=== PATIENT | male | born 1950 | race Caucasian/White ===

== ENCOUNTER → 2018-12-21 15:39 | Outpatient (CLI) | payer MEDICARE, SELFPAY ==
[2018-12-21 17:41] LABS: Protein, Urine (Random) 17.7 mg/dL (<11.9); Protein:Creat Ratio 261 mg/g CRE (0-200)
== END ==
PROVIDERS: Family Provider Family Medicine; PCP Family Medicine; Visit Provider Internal Medicine Nephrology
DX: N18.3 Chronic kidney disease, stage 3 (moderate) (principal)
CPT/HCPCS: 82570; 84156

== ENCOUNTER → 2018-12-23 11:02 | Outpatient (CLI) | payer MEDICARE, SELFPAY ==
[2017-01-07 17:49] VITALS: BMI 30.9
--- NOTE | 2018-12-23 11:12 | US_ITS ---
STUDY: RENAL ULTRASOUND - COMPLETE REASON FOR EXAM: Male, 68 years old. Elevated BUN/creatinine TECHNIQUE: Ultrasound evaluation of the kidneys was performed with real-time and static hargrove-scale imaging. COMPARISON: None. FINDINGS: RIGHT KIDNEY: Normal location of the right kidney, which is normal in size. The right kidney measures 9.5 x 4.7 x 5.0 cm. There is a normal cortex of the right kidney. The renal cortex measures 1.2 cm. There is no right renal mass or cyst. There are no right renal calculi. There is no right hydronephrosis. DISTAL RIGHT URETER: There is non-visualization of the distal right ureter. There is no demonstrated right ureterovesical junction calculus. There is a visualized right ureteral jet. LEFT KIDNEY: Normal location of the left kidney, which is normal in size. The left kidney measures 9.3 x 4.8 x 4.9 cm. There is a normal cortex of the left kidney. The renal cortex measures 1.4 cm. There is no left renal mass or cyst. There are no left renal calculi. There is no left hydronephrosis. DISTAL LEFT URETER: There is non-visualization of the distal left ureter. There is no demonstrated left ureterovesical junction calculus. There is a visualized left ureteral jet. AORTA: There is no elongation or tortuosity of the abdominal aorta. I.V.C.: The IVC is patent. BLADDER: The bladder is sonographically normal, however there is impingement upon the inferior bladder from a likely prostate nodule measuring 1.2 x 1.1 x 1.2 cm. Consider further evaluation with CT, or dedicated prostate ultrasound US/Kidney and Bladder IMPRESSION: No obstructive uropathy or suspicious solid lesion. Possible prostate lesion Electronically Signed: Charlie Guallpa MD at 12:55 EDT , Service support ,
== END ==
PROVIDERS: Family Provider Family Medicine; PCP Family Medicine; Referring Provider Internal Medicine Nephrology; Visit Provider Internal Medicine Nephrology
DX: N18.3 Chronic kidney disease, stage 3 (moderate) (principal)
CPT/HCPCS: 76770

== ENCOUNTER → 2019-01-23 11:34 | Outpatient (CLI) | payer MEDICARE, SELFPAY ==
[2019-01-23 13:16] LABS: Albumin, Serum 3.9 g/dL (3.2-5.0); BUN 25 mg/dL (7-18); BUN/Creat Ratio 16.3 RATIO (10-20); Calcium,Total 9.1 mg/dL (8.5-10.1); Chloride 105 mmol/L (98-107); Creatinine, Serum 1.53 mg/dL (0.70-1.30); EST Glomerular Filtration Rate 49 mL/min (>60); Est Glom Filt Rate - Afr Amer 59 mL/min (>60); Glucose 120 mg/dL (74-106); Phosphorus 2.9 mg/dL (2.5-4.9); Sodium Level 137 mmol/L (136-145)
[2019-01-24 15:27] LABS: Anti-Nuclear Antibody Test Negative (.)
== END ==
PROVIDERS: Family Provider Family Medicine; PCP Family Medicine; Visit Provider Internal Medicine Nephrology
DX: N18.3 Chronic kidney disease, stage 3 (moderate) (principal)
CPT/HCPCS: 36415; 80069; 86038

== ENCOUNTER → 2019-09-04 11:04 | Outpatient (CLI) | payer MEDICARE, SELFPAY ==
[2017-01-07 17:49] VITALS: BMI 30.9
[2019-09-04 12:48] LABS: Albumin, Serum 3.8 g/dL (3.2-5.0); BUN 21 mg/dL (7-18); BUN/Creat Ratio 13.8 RATIO (10-20); Calcium,Total 9.3 mg/dL (8.5-10.1); Chloride 107 mmol/L (98-107); Creatinine, Serum 1.52 mg/dL (0.70-1.30); EST Glomerular Filtration Rate 49 mL/min (>60); Est Glom Filt Rate - Afr Amer 59 mL/min (>60); Glucose 79 mg/dL (74-106); Phosphorus 2.6 mg/dL (2.5-4.9); Potassium 4.1 mmol/L (3.5-5.1); Sodium Level 141 mmol/L (136-145)
--- OUTSIDE RECORDS SUMMARY | 2020-01-14 09:34 | XMS RPT_ITS | CCD ---
:1950 External Reference #:[id number] Author Organization [facility] Care Team Providers Name Role Phone Vanessa Livingston () Primary Care Provider Allergies Reported Allergen Reaction(s) Severity Date of Onset Location atorvastatin 11-22-2004 - [facility] ([id number]) diphenhydrAMINE 06-01-2006 - [facility] ([id number]) Pravastatin Myalgia 11-15-2017 - [facility] ([id number]) Simvastatin 11-22-2004 - [facility] ([id number]) Medications Medication Name Sig Date Prescriber Location Finasteride finasteride (PROSCAR) 09-19-2019 Zoraida Bond) [facility] 5 mg tablet ([id number]) Indications: BPH without obstruction/lower urinary tract symptoms Take 1 tablet by mouth once daily. 90 tablet 3 09/19/2019 Active Comment: Take 1 tablet by mouth once daily. Meclizine meclizine (ANTIVERT) 05-05-2019 - Lisa ([facility]) [facility] 25 mg tab Take 1 11-20-2019 Podlogar Lisa ([id number]) tablet by mouth every (Retail Client Manager) Podlogar 6 hours as needed (dizziness). 30 tablet 0 05/05/2019 11/20/2019 Discontinued Comment: Take 1 tablet by mouth every 6 hours as needed (dizziness). POLYETHYLENE peg 3350-electrolytes 12-05-2019 - Lisa (Retail Client Manager) Michelle and GLYCOL 3350 / (COLYTE) [id number] 12-05-2019 [facility] Lisa [facility] ([id number]) Potassium Chloride -5.84 gram solution (Retail Client Manager) [facility]logar / Sodium Take 4,000 mL by mouth Bicarbonate / one time only for 1 Sodium Chloride / dose. 1 Bottle 0 sodium sulfate 12/05/2019 12/05/2019 Active Comment: Take 4,000 mL by mouth one t nacho only for 1 dose. rosuvastatin rosuvastatin (CRESTOR) 5 mg 09-18-2019 René Valdez) [facility] tablet Indications: Pure [place] (44 195) hypercholesterolemia Take 1 tablet by mouth daily at bedtime. 30 tablet 5 09/18/2019 Active Comment: Take 1 tablet by mouth daily at bedtime. tamsulosin tamsulosin ER (FLOMAX) 0.4 09-19-2019 [place] ([place]) C [facility] mg Indications: BPH without [place] (90984) obstruction/lower urinary tract symptoms Take 1 capsule by mouth twice daily at 6AM and 9PM. 180 capsule 3 09/19/2019 Active Comment: Take 1 capsule by mouth twic e daily at 6AM and 9PM. Vacuum Erection Vacuum Erection Device 01-16-2016 [facility] System (RAPPORT VACUUM (441 95) (RAPPORT VACUUM THERAPY) kit THERAPY) kit Indications: Impotence of organic origin To use as directed. Dx:N52.9 1 Kit 0 01/16/2016 Active Vacuum Erection Device System 01-16-2016 [facility] (19556) (RAPPORT VACUUM THERAPY) kit Indications: Impotence of organic origin To use as directed. Dx:N52.9 1 Kit 0 01/16/2016 Active Vacuum Erection Device System 01-16-2016 [facility] (44214) (RAPPORT VACUUM THERAPY) kit Indications: Impotence of organic origin To use as directed. Dx:N52.9 1 Kit 0 01/16/2016 Active Vacuum Erection Device System 01-16-2016 [facility] (80252) (RAPPORT VACUUM THERAPY) kit Indications: Impotence of organic origin To use as directed. Dx:N52.9 1 Kit 0 01/16/2016 Active Comment: To use as directed. Dx:N52.9 Problems Active Problems Category Problem Name Status Date Location Chronic kidney disease Chronic kidney disease stage Active [facility] 3 (21881) Disorders of lipid Pure hypercholesterolemia Active [facility] metabolism (14832) Esophageal disorders Gastroesophageal reflux Active [facility] disease (30769) Essential hypertension Essential hypertension Active 02-12-20 15 - [facility] (79382) Hyperplasia of Benign prostatic hyperplasia Active 01-15-2016 - [facility] prostate (73451) Other inflammatory Psoriasis Active 02-21-2007 - [facility] condition of skin (06300) 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 Active 016 - [facility] disorders (68068) Spondylosis; Displacement of lumbar Active 09-16-2005 - [facility] intervertebral disc intervertebral disc without (14660) disorders; other back myelopathy problems Past or Other Problems Category Problem Name Status Date Location Genitourinary symptoms Lower urinary tract Completed 07-19-2014 - [facility] and ill-defined symptoms (52863) conditions Other screening for Raised prostate Completed 02-04-2016 - [facility] suspected conditions specific antigen (44 195) (not mental disorders or infectious disease) Other upper respiratory Sore throat symptom Completed 09-11-2013 - [facility] infections (10235) Results Result Name Value Range Unit Interpretation Flag Date Location [facility] on 2019-12-12 CNPN Telephone (ISI) Normal 12-12-2019 [facility] WILD CARABALLO ([id number]) 1950 M [place] Date Time Provider Department ([id number]) 12/12/19 REDD COLON During your visit today, we recorded the following informati on about you: Redd Colon MD 12/12/2019 5:33 PM Signed Colon polyp was a tubular adenoma Rio Cardenas, RN, RN 12/13/2019 7:56 AM Signed Attempted to call pt; left VM asking pt to call office back regarding results. Repeat colonoscopy in 5 years. Allergies As of Date: 12/12/2019 Noted Allergy Reaction BENADRYL (DIPHENHYDRAMINE HCL) 06/01/2006 Comments: hyper feeling LIPITOR (ATORVASTATIN CALCIUM) 11/22/2004 PRAVASTATIN 11/15/2017 17 - Myalgia ZOCOR (SIMVASTATIN) 11/22/2004 Date Reviewed: 12/11/2019 Reviewed by: Raya Torrez (Rn) AKOSUA Fregoso - Fully Assess ed Reason for Visit: Results [95] Prescriptions as of 12/12/2019 Sig: TAMSULOSIN 0.4 MG CAPSULE Take 1 capsule by mouth twice* FINASTERIDE 5 MG TABLET Take 1 tablet by mouth once d* ROSUVASTATIN 5 MG TABLET Take 1 tablet by mouth daily * VACUUM ERECTION DEVICE SYSTEM* To use as directed. Dx:N52.9 Problem List As Of Date 12/12/2019 Noted Resolved LUMBAGO [M54.5] 09/16/2005 PURE HYPERCHOLESTEROLEM [E78.00] More... LUMBAR DISC DISPLACEMENT [M51.26] OTHER PSORIASIS [L40.8] 02/21/2007 ESOPHAGEAL REFLUX [K21.9] More... Sore throat [J02.9] 09/11/2013 More... Lower urinary tract symptoms (LUTS) [R39.9] 07/19/2014 Essential hypertension [I10] 02/11/2015 BPH (benign prostatic hypertrophy) with urinary*01/15/2016 Impotence of organic origin [N52.9] 01/15/2016 Elevated prostate specific antigen (PSA) [R97.2*02/04/2016 BPH (benign prostatic hyperplasia) [N40.0] Psoriasis [L40.9] More... Encounter Status:Closed by RIO CARDENAS on 12/13/19 surgical pathology on 2019-12-11 SURGICAL Specimen originated from [facility] Normal 12-11-2019 [facility] Specimen #: [id number] Clinic Submitting Physician: REDD COLON MD [place] ([id number]) FINAL DIAGNOSIS Descending colon polyp, biopsy - Tubular adenoma. IG/lbk 12/12/2019 Yani Teresa M.D., Ph.D. (Electronic Signature) SPECIMEN SUBMITTED A: DESCENDING COLON POLYP CLINICAL DATA Z86.010 FORCEP GROSS DESCRIPTION A. Received in formalin is one piece of azrola, soft tissue brody suring 0.2 x 0.2 x 0.2 cm. Totally submitted in one cassette. Gross examination performed at [facility], [address] [place] [address] MMD 12/12/2019 4:44:18 AM Date of Report: 12/12/2019 Date of Procedure: 12/11/2019 Date of Receipt: 12/11/2019 Submitted by: REDD COLON MD Location: W010 Diagnostic interpretation performed at [place] [address]. CLIA Number: [id number] pt ed on 2019-12-11 PT ED HNO ID: [id number] Normal 12-11-2019 [facility] Author: Raya PerezRn) KAOSUA Fregoso [place] ([id number]) Service: Nursing Author Type: Registered Nurse Type: Patient Education Filed: 12/11/2019 12:33 PM Note Text: POST OP LEARNING RESPONSE INSTRUCTION PROVIDED TO: Patient METHOD OF INSTRUCTION: Written instruction - handouts Verbal instruction PATIENT / FAMILY RESPONSE: Verbalizes understanding of: INFE CTION MANAGEMENT-Signs and symptoms of an infection and importance of contacting the physician PHYSICAL RESTRICTIONS-Physical restrictions and recommendati ons after discharge from the hospital POST-PROCEDURE INSTRUCTIONS-Correct actions to take to reduc e post procedure complications PATIENT SAFETY PRINCIPLES WORSENING CONDITION-Signs and symptoms of a worsening condit ion that warrant a call to the physician FOLLOW-UP PLAN: Patient instructed to call with any further issues Follow up phone call. SUPPLEMENTAL MATERIAL: Post sedation instructions given Procedure discharge instructions REFERRAL (RECOMMENDATION): None Electronically Signed By: Raya Fregoso RN In Dep artment: AMBULATORY SURGERY PT ED HNO ID: [id number] Normal 12-11-2019 [facility] Author: Raya Fregoso RN [place] ([id number]) Service: Nursing Author Type: Registered Nurse Type: Patient Education Filed: 12/11/2019 11:01 AM Note Text: PRE OP LEARNING ASSESSMENT PROCEDURE/SURGERY: GI PROCEDURES: Colonoscopy READINESS TO LEARN COGNITIVE ABILITY: Alert and oriented MOTIVATION TO LEARN: Eager FAMILY SUPPORT: High - Very involved in pt care PATIENT LEARNS BEST BY: Verbal Instruction FACTORS AFFECTING LEARNING: None PHYSICAL LIMITATIONS AFFECTING LEARNING: None Electronically Signed By: Raya Fregoso RN In Dep artment: AMBULATORY SURGERY nursing prog on NURSING PROG HNO ID: [id number] [place] 12-11-19 [facility] Author: Raya PerezRnKellee Fregoso RN [place] ([id number]) Service: Nursing Author Type: Registered Nurse Type: Nursing Progress Note Filed: 12/11/2019 12:51 PM Note Text: Patient did not experience a fall prior to discharge. Patient did not experience a burn prior to discharge. Raya Fregoso RN NURSING PROG HNO ID: [id number] [place] 12-11-19 [facility] Author: Cleve Bermudez RN [place] ([id number]) Service: ? Author Type: Registered Nurse Type: Nursing Progress Note Filed: 12/11/2019 12:00 PM Note Text: Patient did not experience a fall within the Intraoperative area. Patient did not experience a burn within the Intraoperative area. Cleve Bermudez RN NURSING PROG HNO ID: [id number] [place] 12-11-19 [facility] Author: Hermilo Brandon RN [place] ([id number]) Service: Nursing Author Type: Registered Nurse Type: Nursing Progress Note Filed: 12/11/2019 11:36 AM Note Text: [facility] PRE-OP NURSING HAND OFF NOTE SBAR Hand off given to Tiff Hemphill RN. Hand off was communicated verbally and at the patient's beds hunter and all questions were answered. FALLS/CONLEY Patient did not experience a fall within the Preoperative ar ea. Patient did not experience a burn within the Preoperative ar ea. Hermilo Brandon RN history physical on 2019-12-11 HISTORY PHYSICAL HNO ID: [id number] Normal 11-27 [facility] Author: Redd Colon [place] ([id number]) Service: Gastroenterology Author Type: Physician Type: HANDP Filed: 12/11/2019 11:37 AM Note Text: PROCEDURAL SEDATION HISTORY AND PHYSICAL EXAM SERVICE DATE: 12/11/2019 SERVICE TIME: 11:36 AM Subjective HPI: This is a 69 year old male who presents with a personal history of colon polyps PAST ANESTHESIA HISTORY: No history of adverse event PAST MEDICAL HISTORY Diagnosis Date - BPH (benign prostatic hyperplasia) - Chronic lower back pain Dr. Machuca - CKD (chronic kidney disease) stage 3, GFR 30-59 ml/min (HC C) Dr. 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 Stephens - Pure hypercholesterolemia with low HDL - Snoring - Tubular adenoma of colon 2014 Follow up colonoscopy 2019 PAST SURGICAL HISTORY Procedure Laterality Date - COLONOSCOP W/ OR W/O [facility] SPEC 08/27/14 Colonoscopy Prior to Admission medications as of 12/11/19 1053 Medication Sig Last Dose Taking tamsulosin ER (FLOMAX) 0.4 mg Take 1 capsule by mouth twice daily at 6AM and 9PM. 12/11/2019 at 0600 Yes finasteride (PROSCAR) 5 mg tablet Take 1 tablet by mouth onc e daily. 12/11/2019 at 0600 Yes rosuvastatin (CRESTOR) 5 mg tablet Take 1 tablet by mouth da jefferson at bedtime. 12/10/2019 at 2200 Yes Vacuum Erection Device System (RAPPORT VACUUM THERAPY) kit T o use as directed. Dx:N52.9 Yes ALLERGIES Allergen Reactions - Benadryl [Diphenhyd* hyper feeling - Lipitor [Atorvastat* - Pravastatin Myalgia - Zocor [Simvastatin] Objective PHYSICAL EXAM: The remainder of the physical exam is noncont ributory. AIRWAY: Airway Visualization of Uvula: Yes Mouth opening greater than 2 fingerbreadths: Yes Neck Full Range of Motion: Yes LUNGS: Lungs clear to auscultation, Good diaphragmatic excur susie CARDIAC: Normal S1 and S2; no rubs, murmurs, or gallops Assessment/Plan ASA Class: ASA Class:: Patient with mild systemic disease Active Problems: * No active hospital problems. * Resolved Problems: * No resolved hospital problems. * Provisional Diagnosis/Treatment Plan: Personal history of co madelaine polyps/colonoscopy SEDATION GOAL: Moderate SIGNATURE: Redd Colon MD PATIENT NAME: Wild Caraballo DATE: December 11, 2019 TIME: 11:36 AM PAGER: No panel information on 2019-12-11 Cardiovascular Rn [facility] 12-11-2019 [facility] Gastrointestinal Endoscopy ([id number]) Patient Name: Wild Caraballo Procedure Date: 12/11/2019 11:02 AM Date of : 1950 Admit Type: Ambulatory Age: 69 Gender: Male Note Status: Finalized Sedation Initiated: 1143 AM Procedure: Colonoscopy Indications: Personal history of colonic polyps Providers: Redd Colon MD Patient Profile: This is a 69 year old male. Refer to n ote in patient chart for documentation of history and physical. Last Colonoscopy: 5 years ago. Referring Physician: René Livingston MD Medicines: Fentanyl 100 micrograms IV, Midazolam 5 mg IV Complications: No immediate complications. Estimated blood loss: Minimal. Requesting Provider: Procedure: Pre-Anesthesia Assessment: - Prior to the procedure, a History and Physical was performed, and patient medications and allergies were reviewed. The patient is competent . The risks and benefits of the procedure and the s edation options and risks were discussed with t he patient. All questions were answered and informe d consent was obtained. Patient identification and pr oposed procedure were verified by the physicia n in the procedure room. Mental Status Examinati on: alert and oriented. Airway Examination: normal or opharyngeal airway and neck mobility. Respiratory E xamination: clear to auscultation. CV Examination: normal. Prophylactic Antibiotics: The patient d oes not require prophylactic antibiotics. Prior Anticoagulants: The patient has taken n o previous anticoagulant or antiplatelet agents. A SA Grade Assessment: II - A patient with mild sy stemic disease. After reviewing the risks and benefits, the patient was deemed in satisfactory cond ition to undergo the procedure. The anesthesia p brian was to use moderate sedation / analgesia (cons cious sedation). Immediately prior to adminis tration of medications, the patient was re-assesse d for adequacy to receive sedatives. The hear t rate, respiratory rate, oxygen saturations, b lood pressure, adequacy of pulmonary ventila tion, and response to care were monitored through out the procedure. The physical status of the p atient was re-assessed after the procedure. After I obtained informed consent, the scope was passed under direct vision. Throughout the procedure, the patient's blood pressure , pulse, and oxygen saturations were monitored campbell nuously. The Colonoscope was introduced through the anus and advanced to the cecum, identified by e appendiceal orifice, IC valve and transillumination . The colonoscopy was performed without diffi culty. The patient tolerated the procedure well. T he quality of the bowel preparation was adequate. The ileocecal valve, appendiceal orifice, and rectum were photographed. Findings: A 5 mm polyp was found in the descending colon. The poly p was sessile. The polyp was removed with a jumbo cold forceps . Resection and retrieval were complete. Estimated blood loss was mi nimal. Impression: - One 5 mm polyp in the descending col on, removed with a jumbo cold forceps. Resected and retrieved. Recommendation: - Discharge patient to home. - Written discharge instructions were p rovided to the patient. - Resume previous diet. - Await pathology results. - Repeat colonoscopy in 5 years for edgard veillance. - Patient has a contact number [facility] for emergencies. The signs and symptoms of potential delayed complications were discussed wi the patient. Return to normal activities to [place]. Written discharge instructions were pro vided to the patient. - Continue present medications. Attending Participation: I personally performed the entire procedure. I was prese nt and participated during the entire procedure, including non- lorenz portions, and during the administration and monitoring of Moderate Sedation. Scope In: 11:49:22 AM Scope Out: 12:00:07 PM MD Redd Ortega MD 12/11/2019 12:17:13 PM This report has been signed electronically by Redd winters MD Number of Addenda: 0 Note Initiated On: 12/11/2019 11:02 AM Estimated Blood Loss: Estimated blood loss was minimal. cnpn on 2019-12-05 CNPN Telephone (ASWSTR) Normal 12-05-2019 [place] WILD Zhang ([id number]) 1950 [facility] Date Time Provider Department ([id number]) 12/05/19 RENÉ LIVINGSTON) ASWSTR During your visit today, we recorded the following informati on about you: Raya Fregoso RN, RN 12/05/2019 10:17 AM Signed Please order prep for colonoscopy to [facility] in [facility]. Thank you, AKOSUA Mcgregor [employer], ASSEMBLER [employer]ING [employer]ATS.LEAD SOFTWARE ENGINEER 12/05/2019 11:18 AM Signed Order for colon prep placed. Thanks, Lisa Berrylogar, ASSEMBLER [employer]ING [employer]ATS.LEAD SOFTWARE ENGINEER Allergies As of Date: 12/05/2019 Noted Allergy Reaction BENADRYL (DIPHENHYDRAMINE HCL) 06/01/2006 Comments: hyper feeling LIPITOR (ATORVASTATIN CALCIUM) 11/22/2004 PRAVASTATIN 11/15/2017 17 - Myalgia ZOCOR (SIMVASTATIN) 11/22/2004 Date Reviewed: 12/05/2019 Reviewed by: Raya Torrez (Rn) AKOSUA Fregoso - Fully Assess ed Reason for Visit: Prescription Refills [177] Order(s):Order #: [id number] Prescriptions as of 12/05/2019 Sig: PEG 3350 240 GRAM-ELECTROLYTE* Take 4,000 mL by mouth one ti * TAMSULOSIN 0.4 MG CAPSULE Take 1 capsule by mouth twice* FINASTERIDE 5 MG TABLET Take 1 tablet by mouth once d* ROSUVASTATIN 5 MG TABLET Take 1 tablet by mouth daily * VACUUM ERECTION DEVICE SYSTEM* To use as directed. Dx:N52.9 Problem List As Of Date 12/05/2019 Noted Resolved LUMBAGO [M54.5] 09/16/2005 PURE HYPERCHOLESTEROLEM [E78.00] More... LUMBAR DISC DISPLACEMENT [M51.26] OTHER PSORIASIS [L40.8] 02/21/2007 ESOPHAGEAL REFLUX [K21.9] More... Sore throat [J02.9] 09/11/2013 More... Lower urinary tract symptoms (LUTS) [R39.9] 07/19/2014 Essential hypertension [I10] 02/11/2015 BPH (benign prostatic hypertrophy) with urinary*01/15/2016 Impotence of organic origin [N52.9] 01/15/2016 Elevated prostate specific antigen (PSA) [R97.2*02/04/2016 BPH (benign prostatic hyperplasia) [N40.0] Psoriasis [L40.9] More... Prescriptions ordered this encounter Disp Refills Start End PEG 3350 240 GRAM-ELECTROLYTES 22.72* 1 Toño* 0 12/05/201910/2019 Route: ORAL Sig: Take 4,000 mL by mouth one time only for 1 dose. Encounter Status:Closed by PAULYLOGLISA JAVIER CNP on 12/05/19 progress on 2019-10 PROGRESS HNO ID: [id number] Normal 11-20-2019 [facility] Author: René Mendez () [place] ([id number]) Service: ? Author Type: Physician Type: Progress Notes Filed: 11/20/2019 7:34 PM Note Text: Chief Complaint Patient presents with: 6 Month Exam HPI Wild Caraballo is a 69 year old male who presents here today f or 9 month follow up. Has been in good health without hospitalizations or ER visits. BPH: Taking flomax and finasteride as prescribed. ?Getting u p 2 times per night to urinate. Has not had straining, weak stream, or hem aturia. Following up yearly with urology. No changes at last OV. Not ed enlarged prostate on kidney/bladder US. No need for additional evalua tion at this time. CKD: Repeat CMP showed stable CKD in stage III range. Seen b y Dr. Huynh in January after referral for neurology. Thought that CKD rela neil to previous NSAID use. REINIER negative. Advised avoidance of NSAID s, low sodium diet which he has been following. ? Psoriasis without recent flare. Following up with Dr. Stephens on yearly basis. Colonoscopy scheduled next month. Walking 4 miles per day and working on healthy diet. Past medical history, appointments, medications, allergies r eviewed. Previous Medical History PAST MEDICAL HISTORY Diagnosis Date - BPH (benign prostatic hyperplasia) - Chronic lower back pain Dr. Machuca - CKD (chronic kidney disease) stage 3, GFR 30-59 ml/min (HC C) Dr. 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 Stephens - Pure hypercholesterolemia with low HDL - Snoring - Tubular adenoma of colon 2014 Follow up colonoscopy due 2020 Previous Surgical History PAST SURGICAL HISTORY Procedure Laterality Date - COLONOSCOP W/ OR W/O [facility] SPEC 08/27/14 Colonoscopy Family History FAMILY HISTORY Problem Relation Age of Onset - other (lung cancer) Father - Hypertension Mother - other (parkinsons) Mother Patient Allergies ALLERGIES Allergen Reactions - Benadryl [Diphenhyd* hyper feeling - Lipitor [Atorvastat* - Pravastatin Myalgia - Zocor [Simvastatin] Current Medications Current Outpatient Medications on File Prior to Visit Medication Sig - tamsulosin ER (FLOMAX) 0.4 mg Take 1 capsule by mouth twic e daily at 6AM and 9PM. - finasteride (PROSCAR) 5 mg tablet Take 1 tablet by mouth o nce daily. - rosuvastatin (CRESTOR) 5 mg tablet Take 1 tablet by mouth daily at bedtime. - meclizine (ANTIVERT) 25 mg tab Take 1 tablet by mouth ever y 6 hours as needed (dizziness). - Vacuum Erection Device System ([employer] VACUUM THERAPY) kit To use as directed. Dx:N52.9 No current facility-administered medications on file prior t o visit. Social History Social History Tobacco Use - Smoking status: Never Smoker - Smokeless tobacco: Never Used Substance Use Topics - Alcohol use: No - Drug use: No Review of Symptoms REVIEW OF SYSTEMS GENERAL: No weight loss, malaise or fevers RESPIRATORY: Negative for cough, hemoptysis, wheezing, COPD, dyspnea or shortness of breath CARDIOVASCULAR: Negative for chest pain, leg swelling, hyper tension, CHF or palpitations GI: No nausea, vomiting, or diarrhea SKIN: Negative for lesions, rash, and itching EXAM: BP 136/84 Pulse 72 Resp 12 Wt 84.4 kg (186 lb) SpO2 96% BMI 30.02 kg/m? General Appearance: Well appearing, alert, in no acute distr ess, well-hydrated, well nourished.. Skin: Skin color, texture, turgor normal, no suspicious rash es or lesions. Lungs: Lungs clear to auscultation. No wheezing, rhonchi, ra les.. Heart: RRR without murmur, gallop, or rubs. No ectopy. Abdomen: Normal abdominal exam, Abdomen soft, non-tender. Toño wel sounds normal. No masses, organomegaly. Extremities: No deformities, edema, skin discoloration, club kyree or cyanosis. Good capillary refill. . Health Maintenance List SHINGRIX VACCINE(1 of 2) due on 2002 COLONOSCOPY due on 08/28/2019 INFLUENZA(1) due on 11/28/2019 ANNUAL PCP TEAM CHRONIC DISEASE VISIT due on 02/04/2020 SERUM CREATININE due on 09/12/2020 HEMOGLOBIN/HEMATOCRIT due on 09/12/2020 BP CONTROLLED (<130/80) due on 09/17/2020 DTAP,TDAP,TD(2 - Td) due on 03/24/2021 DIABETES SCREEN due on 09/12/2022 ADVANCE DIRECTIVE DISCUSSION due on 07/14/2023 LIPID SCREEN due on 09/12/2024 PROSTATE CANCER SCREENING DISCUSSION due on 09/12/2024 HEPATITIS C SCREENING Completed PNEUMOVAX AGE 65 AND OVER WITH 5YR LOOKBACK Completed MENINGOCOCCAL CONJUGATE Completed Data reviewed Component Latest Ref Rng AND Units 09/02/2018 02/01/2019 020 WBC 3.70 - 11.00 k/uL 6.76 RBC 4.20 - 6.00 m/uL 5.13 Hemoglobin 13.0 - 17.0 g/dL 14.9 Hematocrit 39.0 - 51.0 % 45.8 MCV 80.0 - 100.0 fL 89.3 MCH 26.0 - 34.0 pG 29.0 MCHC 30.5 - 36.0 g/dL 32.5 RDW-CV 11.5 - 15.0 % 13.1 Platelet Count 150 - 400 k/uL 256 MPV 9.0 - 12.7 fL 11.2 Neut% % 63.4 Abs Neut (ANC) 1.45 - 7.50 k/uL 4.26 Lymph% % 24.4 Abs Lymph 1.00 - 4.00 k/uL 1.65 [place]% % 11.5 Abs [place] <0.87 k/uL 0.78 Eosin% % 0.0 Abs Eosin <0.46 k/uL <0.03 Baso% % 0.7 Abs Baso <0.11 k/uL 0.05 Nucleated Reds 0 /100 WBC 0.0 Absolute nRBC <0.01 k/uL <0.01 Diff Type Auto Diff Protein, Total 6.3 - 8.0 g/dL 7.6 7.3 Albumin 3.9 - 4.9 g/dL 4.7 4.5 Calcium 8.5 - 10.2 mg/dL 10.1 9.6 Bilirubin, Total 0.2 - 1.3 mg/dL 0.5 0.6 Alkaline Phosphatase 38 - 113 U/L 102 87 AST 14 - 40 U/L 27 29 Glucose 74 - 99 mg/dL 90 89 BUN 9 - 24 mg/dL 23 26 (H) Creatinine 0.73 - 1.22 mg/dL 1.47 (H) 1.57 (H) Sodium 136 - 144 mmol/L 141 136 Potassium 3.7 - 5.1 mmol/L 4.9 4.5 Chloride 97 - 105 mmol/L 103 101 CO2 22 - 30 mmol/L 24 23 Anion Gap 9 - 18 mmol/L 14 12 ALT 10 - 54 U/L 21 21 eGFR- 58 54 eGFR-All Other Races . 48 44 Cholesterol, Total <200 mg/dL 169 160 Triglyceride <150 mg/dL 128 116 HDL Cholesterol >39 mg/dL 50 48 LDL Cholesterol <100 mg/dL 93 89 Non HDL Cholesterol <130 mg/dL 119 112 Fasting Time hrs 12 10 VLDL Cholesterol <30 mg/dL 26 23 TC:HDL Ratio <5.10 3.38 3.33 LDL:HDL Ratio <2.54 1.86 1.85 PSA 0.00 - 2.59 ng/mL 1.68 1.42 ASSESSMENT/PLAN: 1. Essential hypertension - ICD9: 401.9, ICD10: I10 (primary diagnosis) - good control - Continue current medication(s) - Encouraged dietary sodium restriction/DASH diet - Recommended regular aerobic exercise. - Reviewed risks of HTN and principles of treatment - Goal of BP <140/90 2. Benign prostatic hyperplasia with lower urinary tract sym ptoms, symptom details unspecified - ICD9: 600.01, ICD10: N40.1 Controlled. Continue current regimen. 3. Pure hypercholesterolemia - ICD9: 272.0, ICD10: E78.00 - good control - Continue current medication. - Encouraged following a low fat, low cholesterol diet. - Discussed the benefits of regular aerobic exercise and estuardo ght loss. 4. CKD (chronic kidney disease) stage 3, GFR 30-59 ml/min (H CC) - ICD9: 585.3, ICD10: N18.3 Stable. Avoid NSAIDs, limit sodium to 2,000 mg daily. Rechec k in 6 months. - COMP METABOLIC PANEL 5. Psoriasis - ICD9: 696.1, ICD10: L40.9 Asymptomatic. Discussed skin care. F/u in 6 months. René Livingston MD cnov on 2019-11-20 CNOV Office Visit (FAMPWS) Normal 11-20-[address] [place] [address] Clinic WILD CARABALLO ([id number]) 1950 M [place] Date Time Provider Department ([id number]) 11/20/19 4:20 PM [facility]STON[facility] During your visit today, we recorded the following informati on about you: Pulse Respiration Blood pressure Weight 72/minute 12/minute 136/84 84.4 kg René Livingston MD 11/20/2019 7:34 PM Signed Chief Complaint Patient presents with: 6 Month Exam HPI Wild Caraballo is a 69 year old male who presents here today for 9 month follow up. Has been in good health without hospitalizations or ER v isits. BPH: Taking flomax and finas teride as prescribed. ?Getting up 2 times per night to urinate. Has not had straining, weak stream, or hematuria . Following up yearly with urology. No changes at last OV. Noted enlarged p rostate on kidney/bladder US. No need for additional evaluation at this time. CKD: Repeat CMP showed stable CKD in stage III range. Seen b avis Huynh in January after referral for neurology. Thought that CKD re lated to previous NSAID use. REINIER negative. Advised avoidan ce of NSAIDs, low sodium diet which he has been following. ? Psoriasis without recent flare. Following up with Dr. Stephens on yearly basis. Colonoscopy scheduled next month. Walking 4 miles per day and working on healthy diet. Past medical history, appointments, medications, allergies krish rose. Previous Medical History PAST MEDICAL HISTORY Diagnosis Date - BPH (benign prostatic hyperplasia) - Chronic lower back pain Dr. Machuca - CKD (chronic kidney disease) stage 3, GFR 30-59 ml/min (HC C) Dr. 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 Stephens - Pure hypercholesterolemia with low HDL - Snoring - Tubular adenoma of colon 2014 Follow up colonoscopy due 2020 Previous Surgical History PAST SURGICAL HISTORY Procedure Laterality Date - COLONOSCOP W/ OR W/O BRS SPEC 08/27/14 Colonoscopy Family History FAMILY HISTORY Problem Relation Age of Onset - other (lung cancer) Father - Hypertension Mother - other (parkinsons) Mother Patient Allergies ALLERGIES Allergen Reactions - Benadryl [Diphenhyd* hyper feeling - Lipitor [Atorvastat* - Pravastatin Myalgia - Zocor [Simvastatin] Current Medications Current Outpatient Medications on File Prior to Visit Medication Sig - tamsulosin ER (FLOMAX) 0.4 mg Take 1 c apsule by mouth twice daily at 6AM and 9PM. - finasteride (PROSCAR) 5 mg tablet Take 1 tablet by mouth o nce daily. - rosuvastatin (CRESTOR) 5 mg tablet Take 1 tabl et by mouth daily at bedtime. - meclizine (ANTIVERT) 25 mg tab Take 1 tablet by mouth every 6 hours as needed (dizziness). - Vacuum Erection Device Sys tem (RAPPORT VACUUM THERAPY) kit To use as directed. Dx:N52.9 No current facility-administered medications on file prior t o visit. Social History Social History Tobacco Use - Smoking status: Never Smoker - Smokeless tobacco: Never Used Substance Use Topics - Alcohol use: No - Drug use: No Review of Symptoms REVIEW OF SYSTEMS GENERAL: No weight loss, malaise or fevers RESPIRATORY: Negative for cough, hemoptysis, wheezing, COPD, dyspnea or shortness of breath CARDIOVASCULAR: Negative for chest pain, leg swelling, hyp ertension, CHF or palpitations GI: No nausea, vomiting, or diarrhea SKIN: Negative for lesions, rash, and itching EXAM: BP 136/84 Pulse 72 Resp 12 Wt 84.4 kg (186 lb) SpO2 96% BMI 30.02 kg/m? General Appearance: Well kvng earing, alert, in no acute distress, well-hydrated, well nourished.. Skin: Skin color, texture, turgor normal, no suspicious rash es or lesions. Lungs: Lungs clear to auscultation. No wheezing, rhonchi, ra les.. Heart: RRR without murmur, gallop, or rubs. No ectopy. Abdomen: Normal abdominal exam, Abdomen soft, non-tender. Bowel sounds normal. No masses, organomegaly. Extremities: No deformities, edema, skin discolo ration, clubbing or cyanosis. Good capillary refill. . Health Maintenance List SHINGRIX VACCINE(1 of 2) due on 2002 COLONOSCOPY due on 08/28/2019 INFLUENZA(1) due on 11/28/2019 ANNUAL PCP TEAM CHRONIC DISEASE VISIT due on 02/04/2020 SERUM CREATININE due on 09/12/2020 HEMOGLOBIN/HEMATOCRIT due on 09/12/2020 BP CONTROLLED (<130/80) due on 09/17/2020 DTAP,TDAP,TD(2 - Td) due on 03/24/2021 DIABETES SCREEN due on 09/12/2022 ADVANCE DIRECTIVE DISCUSSION due on 07/14/2023 LIPID SCREEN due on 09/12/2024 PROSTATE CANCER SCREENING DISCUSSION due on 09/12/2024 HEPATITIS C SCREENING Completed PNEUMOVAX AGE 65 AND OVER WITH 5YR LOOKBACK Completed MENINGOCOCCAL CONJUGATE Completed Data reviewed Component Latest Ref Rng AND Units 09/02/2018 02/01/2019 020 WBC 3.70 - 11.00 k/uL 6.76 RBC 4.20 - 6.00 m/uL 5.13 Hemoglobin 13.0 - 17.0 g/dL 14.9 Hematocrit 39.0 - 51.0 % 45.8 MCV 80.0 - 100.0 fL 89.3 MCH 26.0 - 34.0 pG 29.0 MCHC 30.5 - 36.0 g/dL 32.5 RDW-CV 11.5 - 15.0 % 13.1 Platelet Count 150 - 400 k/uL 256 MPV 9.0 - 12.7 fL 11.2 Neut% % 63.4 Abs Neut (ANC) 1.45 - 7.50 k/uL 4.26 Lymph% % 24.4 Abs Lymph 1.00 - 4.00 k/uL 1.65 [place]% % 11.5 Abs [place] <0.87 k/uL 0.78 Eosin% % 0.0 Abs Eosin <0.46 k/uL <0.03 Baso% % 0.7 Abs Baso <0.11 k/uL 0.05 Nucleated Reds 0 /100 WBC 0.0 Absolute nRBC <0.01 k/uL <0.01 Diff Type Auto Diff Protein, Total 6.3 - 8.0 g/dL 7.6 7.3 Albumin 3.9 - 4.9 g/dL 4.7 4.5 Calcium 8.5 - 10.2 mg/dL 10.1 9.6 Bilirubin, Total 0.2 - 1.3 mg/dL 0.5 0.6 Alkaline Phosphatase 38 - 113 U/L 102 87 AST 14 - 40 U/L 27 29 Glucose 74 - 99 mg/dL 90 89 BUN 9 - 24 mg/dL 23 26 (H) Creatinine 0.73 - 1.22 mg/dL 1.47 (H) 1.57 (H) Sodium 136 - 144 mmol/L 141 136 Potassium 3.7 - 5.1 mmol/L 4.9 4.5 Chloride 97 - 105 mmol/L 103 101 CO2 22 - 30 mmol/L 24 23 Anion Gap 9 - 18 mmol/L 14 12 ALT 10 - 54 U/L 21 21 eGFR- 58 54 eGFR-All Other Races . 48 44 Cholesterol, Total <200 mg/dL 169 160 Triglyceride <150 mg/dL 128 116 HDL Cholesterol >39 mg/dL 50 48 LDL Cholesterol <100 mg/dL 93 89 Non HDL Cholesterol <130 mg/dL 119 112 Fasting Time hrs 12 10 VLDL Cholesterol <30 mg/dL 26 23 TC:HDL Ratio <5.10 3.38 3.33 LDL:HDL Ratio <2.54 1.86 1.85 PSA 0.00 - 2.59 ng/mL 1.68 1.42 ASSESSMENT/PLAN: 1. Essential hypertension - ICD9: 401.9, ICD10: I10 (primary diagnosis) - good control - Continue current medication(s) - Encouraged dietary sodium restriction/DASH diet - Recommended regular aerobic exercise. - Reviewed risks of HTN and principles of treatment - Goal of BP <140/90 2. Benign prostatic hyperplasia with lower urinary tract sym ptoms, symptom details unspecified - ICD9: 600.01, ICD10: N40.1 Controlled. Continue current regimen. 3. Pure hypercholesterolemia - ICD9: 272.0, ICD10: E78.00 - good control - Continue current medication. - Encouraged following a low fat, low cholesterol diet. - Discussed the benefits of regular aerobic exercise and estuardo ght loss. 4. CKD (chronic kidney disease) stage 3, GFR 30-59 ml/min (HCC) - ICD9: 585.3, ICD10: N18.3 Stable. Avoid NSAIDs, limit sodium to 2,000 mg daily. Rechec k in 6 months. - COMP METABOLIC PANEL 5. Psoriasis - ICD9: 696.1, ICD10: L40.9 Asymptomatic. Discussed skin care. F/u in 6 months. René Livingston MD Referring Provider: RENÉ LIVINGSTON) [[id number]] Allergies As of Date: 11/20/2019 Noted Allergy Reaction BENADRYL (DIPHENHYDRAMINE HCL) 06/01/2006 Comments: hyper feeling LIPITOR (ATORVASTATIN CALCIUM) 11/22/2004 PRAVASTATIN 11/15/2017 17 - Myalgia ZOCOR (SIMVASTATIN) 11/22/2004 Date Reviewed: 11/20/2019 Reviewed by: Kristian Palacio Ma - Fully Assessed Reason for Visit: 6 Month Exam [189] Primary Visit Diagnosis:Essential hypertension [I10] Other Visit Diagnoses:Benign prostatic hyperplasia with lo wer urinary tract symptoms, symptom details unspecified [N40.1] Pure hypercholesterolemia [E78.00] CKD (chronic kidney disease) stage 3, GFR 30-59 ml/min (HCC) [N18.3] Psoriasis [L40.9] Order(s):COMP METABOLIC PANEL [SQCMP] Order #: [id number] FU TURE Prescriptions as of 11/20/2019 Sig: TAMSULOSIN 0.4 MG CAPSULE Take 1 capsule by mouth twice* FINASTERIDE 5 MG TABLET Take 1 tablet by mouth once d* ROSUVASTATIN 5 MG TABLET Take 1 tablet by mouth daily * VACUUM ERECTION DEVICE SYSTEM* To use as directed. Dx:N52.9 Problem List As Of Date 11/20/2019 Noted Resolved LUMBAGO [M54.5] 09/16/2005 PURE HYPERCHOLESTEROLEM [E78.00] More... LUMBAR DISC DISPLACEMENT [M51.26] OTHER PSORIASIS [L40.8] 02/21/2007 ESOPHAGEAL REFLUX [K21.9] More... Sore throat [J02.9] 09/11/2013 More... Lower urinary tract symptoms (LUTS) [R39.9] 07/19/2014 Essential hypertension [I10] 02/11/2015 BPH (benign prostatic hypertrophy) with urinary*01/15/2016 Impotence of organic origin [N52.9] 01/15/2016 Elevated prostate specific antigen (PSA) [R97.2*02/04/2016 BPH (benign prostatic hyperplasia) [N40.0] Psoriasis [L40.9] More... Medications Discontinued During This Encounter Prescriptions - meclizine (ANTIVERT) 25 mg tab (Discontinued) Take 1 tablet by mouth every 6 hours as needed (dizziness). Disposition: Return in about 6 months (around 05/22/2020) for virtual visit. Follow-up and Disposition History Recorded Encounter Status:Closed by RENÉ LIVINGSTON MD on 0 hosp on 2019-10-18 HOSP Patient:Wild Caraballo Normal 0 [facility] MRN: [place] ([id number]) Height:5' 6(1.676 m) Weight:186 lb (84.369 kg) Outpatient Medications as of 12/11/19: tamsulosin ER (FLOMAX) 0.4 mg finasteride (PROSCAR) 5 mg tablet rosuvastatin (CRESTOR) 5 mg tablet Vacuum Erection Device System (RAPPORT VACUUM THERAPY) kit Admission/Clinic Administered Medications as of 12/11/19: lactated ringers infusion Problem List: Lumbago [M54.5] Pure hypercholesterolemia [E78.00] Displacement of lumbar intervertebral disc without myelopath y [M51.26] Other psoriasis [L40.8] Esophageal reflux [K21.9] Sore throat [J02.9] Lower urinary tract symptoms (LUTS) [R39.9] Essential hypertension [I10] BPH (benign prostatic hypertrophy) with urinary obstruction [N40.1, N13.8] Impotence of organic origin [N52.9] Elevated prostate specific antigen (PSA) [R97.20] BPH (benign prostatic hyperplasia) [N40.0] Psoriasis [L40.9] Allergies: Benadryl [Diphenhydramine Hcl] Lipitor [Atorvastatin Calcium] Pravastatin Zocor [Simvastatin] Date Verified: 12/11/19 Lab Values No results within the last 30 days for the following basenam es: K,HCT Progress Notes ([facility]): Leena Haile Pss 12/08/2019 7:42 AM Signed Patient needs an order placed for his upcoming colonoscopy o n Sunday 12/10 Thank you, Leena Haile Pss Progress Notes ([facility]): Raya Fregoso RN, RN 12/05/2019 10:17 AM Signed Please order prep for colonoscopy to [facility] in [facility]. Thank you, Raya Fregoso, AKOSUA Ellis, ASSEMBLER [employer]ING [employer]ATS.LEAD SOFTWARE ENGINEER 12/05/2019 11:18 AM Signed Order for colon prep placed. Thanks, Lisa Ellis, ASSEMBLER [employer]ING [employer]ATS.LEAD SOFTWARE ENGINEER progress on 2019-08 PROGRESS HNO ID: [id number] Normal 09-18-2019 [facility] Author: Zoraida Bond) John [place] ([id number]) Service: ? Author Type: Physician Neurology Tech Type: Progress Notes Filed: 09/18/2019 11:27 AM Note Text: [facility] ESTABLISHED PATIENT NOTE PATIENT INFO: Wild Caraballo PCP: René Livingston MD UROLOGY DIAGNOSES: 1. Chronic kidney disease, unspecified CKD stage - ICD9: 585 .9, ICD10: N18.9 (primary diagnosis) 2. Screening PSA (prostate specific antigen) - ICD9: V76.44, ICD10: Z12.5 CHIEF COMPLAINT: BPH w/ LUTS HPI: This is a 69 yo male with a long history of BPH with LUTS, o n the Proscar and Flomax . He feels he is emptying his bladder well And PVR today was 166 ml Biopsy - Negative FINAL DIAGNOSIS 2015 1. Prostate, right base lateral, needle biopsy (A) - Benign prostatic tissue. 2. Prostate, right mid lateral, needle biopsy (B) - Benign p rostatic tissue. 3. Prostate, right apex lateral, needle biopsy (C) - Benign prostatic tissue. 4. Prostate, right base medial, needle biopsy (D) - Benign p rostatic tissue. 5. Prostate, right mid medial, needle biopsy (E) - Benign pr ostatic tissue. 6. Prostate, right apex medial, needle biopsy (F) - Benign p rostatic tissue. 7. Prostate, left base lateral, needle biopsy (G) - Benign p rostatic tissue. 8. Prostate, left mid lateral, needle biopsy (H) - Benign pr ostatic tissue. 9. Prostate, left apex lateral, needle biopsy (I) - Benign p rostatic tissue. 10. Prostate, left base medial, needle biopsy (J) - Benign p rostatic tissue. 11. Prostate, left mid medial, needle biopsy (K) - Benign pr ostatic tissue. 12. Prostate, left apex medial, needle biopsy (L) - Benign p rostatic tissue. PMH: PAST MEDICAL HISTORY Diagnosis Date - BPH (benign prostatic hyperplasia) - Chronic lower back pain Dr. Machuca - CKD (chronic kidney disease) stage 3, GFR 30-59 ml/min (HC C) Dr. 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 Stephens - Pure hypercholesterolemia with low HDL - Snoring - Tubular adenoma of colon 2014 Follow up colonoscopy due 2020 ROS: REVIEW OF SYSTEMS CHANGES SINCE LAST APPOINTMENT:See HPI All other ROS were discussed and negative MEDICATIONS: Current Outpatient Medications Medication Sig - meclizine (ANTIVERT) 25 mg tab Take 1 tablet by mouth ever y 6 hours as needed (dizziness). - finasteride (PROSCAR) 5 mg tablet Take 1 tablet by mouth o nce daily. - rosuvastatin (CRESTOR) 5 mg tablet Take 1 tablet by mouth daily at bedtime. - tamsulosin ER (FLOMAX) 0.4 mg cap Take 1 capsule by mouth twice daily at 6AM and 9PM. - sildenafil (VIAGRA) 50 mg tablet Take 1 tablet by mouth as needed. one hour prior to intercourse - Vacuum Erection Device System (RAPPORT VACUUM THERAPY) kit To use as directed. Dx:N52.9 No current facility-administered medications for this visit. PHYSICAL EXAM: BP 102/60 Pulse 70 Resp 16 Wt 87.1 kg (192 lb) SpO2 100% BMI 30.99 kg/m? Body mass index is 30.99 kg/m?. General Appearance/ Constitutional: Well developed, well nou rished, and in no apparent distress (MALE): Penis: Normal without external lesions Testicles: bilaterally and normal Cord/Epididymis: bilaterally and normal Vas Deferens: bilaterally and normal Rectum/Tone: Normal Prostate: 40 g and Benign PVR - 166 ml DIAGNOSES: 1. Chronic kidney disease, unspecified CKD stage - ICD9: 585 .9, ICD10: N18.9 IMPRESSION/PLAN: > 1 year Appt w/ B. EZIO [place], BULMARO BAUTISTA with PSA > Follows with Nephrology for Renal dysfunction and chronica lly elevated sCr EZIO Justin MT, PA-C obsolete on 2019-08 OBSOLETE Refill (UROLWS) Normal 09-18-2019 [facility] WILD CARABALLO ([id number]) 1950 M [facility] Time Provider Department ([id number]) 09/18/19 ZORAIDA BIRMINGHAM (ASHLEY) UROLWS During your visit today, we recorded the following informati on about you: Linda Arredondo LPN 09/18/2019 12:25 PM Signed Patient phones requesting refills as follows: Pending Prescriptions Disp Refills TAMSULOSIN 0.4 MG CAPSULE 180 capsule 1 Sig: Take 1 capsule by mouth twice daily at 6AM and 9PM. POLLY: No FINASTERIDE 5 MG TABLET 90 tablet 1 Sig: Take 1 tablet by mouth once daily. POLLY: No Please review and advise. Linda Arredondo LPN Allergies As of Date: 09/18/2019 Noted Allergy Reaction BENADRYL (DIPHENHYDRAMINE HCL) 06/01/2006 Comments: hyper feeling LIPITOR (ATORVASTATIN CALCIUM) 11/22/2004 PRAVASTATIN 11/15/2017 17 - Myalgia ZOCOR (SIMVASTATIN) 11/22/2004 Date Reviewed: 09/18/2019 Reviewed by: Linda Arredondo LPN - Fully Assessed Reason for Visit: Refill Request [94] Visit Diagnosis:BPH without obstruction/lower urinary tract symptoms [N40.0] Order(s):tamsulosin ER (FLOMAX) 0.4 mgTake 1 capsule b y mouth twice daily at 6AM and 9PM.Disp: 180 capsuleRfl: 3 finasteride (PROSCAR) 5 mg tabletTake 1 tablet by mouth once daily.Disp: 90 tabletRfl: 3 Prescriptions as of 09/18/2019 Sig: TAMSULOSIN 0.4 MG CAPSULE Take 1 capsule by mouth twice* FINASTERIDE 5 MG TABLET Take 1 tablet by mouth once d* MECLIZINE 25 MG TABLET Take 1 tablet by mouth every * X ROSUVASTATIN 5 MG TABLET Take 1 tablet by mouth daily * VACUUM ERECTION DEVICE SYSTEM* To use as directed. Dx:N52.9 Problem List As Of Date 09/18/2019 Noted Resolved LUMBAGO [M54.5] 09/16/2005 PURE HYPERCHOLESTEROLEM [E78.00] More... LUMBAR DISC DISPLACEMENT [M51.26] OTHER PSORIASIS [L40.8] 02/21/2007 ESOPHAGEAL REFLUX [K21.9] More... Sore throat [J02.9] 09/11/2013 More... Lower urinary tract symptoms (LUTS) [R39.9] 07/19/2014 Essential hypertension [I10] 02/11/2015 BPH (benign prostatic hypertrophy) with urinary*01/15/2016 Impotence of organic origin [N52.9] 01/15/2016 Elevated prostate specific antigen (PSA) [R97.2*02/04/2016 BPH (benign prostatic hyperplasia) [N40.0] Psoriasis [L40.9] More... Prescriptions ordered this encounter Disp Refills Start End TAMSULOSIN 0.4 MG CAPSULE 180 * 3 09/19/2019 Route: ORAL Sig: Take 1 capsule by mouth twice daily at 6AM and 9PM. FINASTERIDE 5 MG TABLET 90 t* 3 09/19/2019 Route: ORAL Sig: Take 1 tablet by mouth once daily. Medications Discontinued During This Encounter tamsulosin ER (FLOMAX) 0.4 mg cap 180 * 1 05/03/2019 09/19/2019 Route: ORAL Sig: Take 1 capsule by mouth twice daily at 6AM and 9PM. Disc: Reason for discontinue is not on file. finasteride (PROSCAR) 5 mg tablet 90 t* 1 05/03/2019 09/19/2019 Route: ORAL Sig: Take 1 tablet by mouth once daily. Disc: Reason for discontinue is not on file. Encounter Status:Closed by ZORAIDA BIRMINGHAM PA-C on 09/19/19 OBSOLETE Refill (FAMPWS) Normal 09-18-2019 Anton arnett [facility] WILD CARABALLO ([id number]) 1950 [facility] Date Time Provider Department ([id number]) 09/18/19 RENÉ LIVINGSTON) NATALIEWS During your visit today, we recorded the following informati on about you: Dalila Decker Pss 09/18/2019 12:38 PM Signed Patient has been identified by name and date of : Yes Pending Prescriptions Disp Refills ROSUVASTATIN 5 MG TABLET 30 tablet 5 Sig: Take 1 tablet by mouth daily at bedtime. POLLY: No RX INSTRUCTIONS: Patient aware RX will be sent to pharmacy. No need to notify patient. Dalila Decker Pss Allergies As of Date: 09/18/2019 Noted Allergy Reaction BENADRYL (DIPHENHYDRAMINE HCL) 06/01/2006 Comments: hyper feeling LIPITOR (ATORVASTATIN CALCIUM) 11/22/2004 PRAVASTATIN 11/15/2017 17 - Myalgia ZOCOR (SIMVASTATIN) 11/22/2004 Date Reviewed: 09/18/2019 Reviewed by: Linda Arredondo LPN - Fully Assessed Reason for Visit: Refill Request [94] Visit Diagnosis:Pure hypercholesterolemia [E78.00] Order(s):rosuvastatin (CRESTOR) 5 mg tabletTake 1 tablet by mouth daily at bedtime.Disp: 30 tabletRfl: 5 Prescriptions as of 09/18/2019 Sig: ROSUVASTATIN 5 MG TABLET Take 1 tablet by mouth daily * MECLIZINE 25 MG TABLET Take 1 tablet by mouth every * FINASTERIDE 5 MG TABLET Take 1 tablet by mouth once d* TAMSULOSIN 0.4 MG CAPSULE Take 1 capsule by mouth twice* VACUUM ERECTION DEVICE SYSTEM* To use as directed. Dx:N52.9 Problem List As Of Date 09/18/2019 Noted Resolved LUMBAGO [M54.5] 09/16/2005 PURE HYPERCHOLESTEROLEM [E78.00] More... LUMBAR DISC DISPLACEMENT [M51.26] OTHER PSORIASIS [L40.8] 02/21/2007 ESOPHAGEAL REFLUX [K21.9] More... Sore throat [J02.9] 09/11/2013 More... Lower urinary tract symptoms (LUTS) [R39.9] 07/19/2014 Essential hypertension [I10] 02/11/2015 BPH (benign prostatic hypertrophy) with urinary*01/15/2016 Impotence of organic origin [N52.9] 01/15/2016 Elevated prostate specific antigen (PSA) [R97.2*02/04/2016 BPH (benign prostatic hyperplasia) [N40.0] Psoriasis [L40.9] More... Prescriptions ordered this encounter Disp Refills Start End ROSUVASTATIN 5 MG TABLET 30 t* 5 09/18/2019 Route: ORAL Sig: Take 1 tablet by mouth daily at bedtime. Medications Discontinued During This Encounter rosuvastatin (CRESTOR) 5 mg tablet 30 t* 5 05/03/2019 0 Route: ORAL Sig: Take 1 tablet by mouth daily at bedtime. Disc: Reason for discontinue is not on file. Encounter Status:Closed by RENÉ LIVINGSTON MD on 0 cnov on 2019-09-18 CNOV Office Visit (UROLWS) Normal 09-18-[address] [place] [address] WILD Zhang ([id number]) 1950 M [place] Date Time Provider Department ([id number]) 09/18/19 9:00 AM ZORAIDA BIRMINGHAM) UROLWS During your visit today, we recorded the following informati on about you: Pulse Respiration Blood pressure Weight 70/minute 16/minute 102/60 87.1 kg ASHLEY Thomas 09/18/2019 11:27 AM Addendum [facility] ESTABLISHED PATIENT NOTE PATIENT INFO: Wild Caraballo PCP: René Livingston MD UROLOGY DIAGNOSES: 1. Chronic kidney disease, unspecified CKD stage - ICD 9: 585.9, ICD10: N18.9 (primary diagnosis) 2. Screening PSA (prostate specific antigen) - ICD9: V76.44, ICD10: Z12.5 CHIEF COMPLAINT: BPH w/ LUTS HPI: This is a 69 yo male with a long history of BPH with LUTS, on the Proscar and Flomax . He feels he is emptying his bladder well And PVR today was 166 ml Biopsy - Negative FINAL DIAGNOSIS 2015 1. Prostate, right base lateral, needle biopsy (A) - Benign prostatic tissue. 2. Prostate, right mid lateral, needle biopsy (B) - Benign p rostatic tissue. 3. Prostate, right apex lateral, needle biopsy (C) - Benign prostatic tissue. 4. Prostate, right base medial, needle biopsy (D) - Benign p rostatic tissue. 5. Prostate, right mid medial, needle biopsy (E) - Benign prostatic tissue. 6. Prostate, right apex medial, needle biopsy (F) - Benign p rostatic tissue. 7. Prostate, left base lateral, needle biopsy (G) - Benign p rostatic tissue. 8. Prostate, left mid lateral, needle biopsy (H) - Benign prostatic tissue. 9. Prostate, left apex lateral, needle biopsy (I) - Benign p rostatic tissue. 10. Prostate, left base medial, needle biopsy (J) - Benign p rostatic tissue. 11. Prostate, left mid medial, needle biopsy (K) - Benign prostatic tissue. 12. Prostate, left apex medial, needle biopsy (L) - Benign p rostatic tissue. PMH: PAST MEDICAL HISTORY Diagnosis Date - BPH (benign prostatic hyperplasia) - Chronic lower back pain Dr. [place] - CKD (chronic kidney disease) stage 3, GFR 30-59 ml/min (HC C) Dr. 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 Stephens - Pure hypercholesterolemia with low HDL - Snoring - Tubular adenoma of colon 2014 Follow up colonoscopy due 2020 ROS: REVIEW OF SYSTEMS CHANGES SINCE LAST APPOINTMENT:See HPI All other ROS were discussed and negative MEDICATIONS: Current Outpatient Medications Medication Sig - meclizine (ANTIVERT) 25 mg tab Take 1 tablet by mouth every 6 hours as needed (dizziness). - finasteride (PROSCAR) 5 mg tablet Take 1 tablet by mouth o nce daily. - rosuvastatin (CRESTOR) 5 mg tablet Take 1 tabl et by mouth daily at bedtime. - tamsulosin ER (FLOMAX) 0.4 mg cap Take 1 capsule by mouth twice daily at 6AM and 9PM. - sildenafil (VIAGRA) 50 mg tablet Take 1 tablet by mouth as needed. one hour prior to intercourse - Vacuum Erection Device Sys tem (RAPPORT VACUUM THERAPY) kit To use as directed. Dx:N52.9 No current facility-administered medications for this visit. PHYSICAL EXAM: BP 102/60 Pulse 70 Resp 16 Wt 87.1 kg (192 lb) SpO2 100% BMI 30.99 kg/m? Body mass index is 30.99 kg/m?. General Appearance/ Constitutional: Well develop ed, well nourished, and in no apparent distress (MALE): Penis: Normal without external lesions Testicles: bilaterally and normal Cord/Epididymis: bilaterally and normal Vas Deferens: bilaterally and normal Rectum/Tone: Normal Prostate: 40 g and Benign PVR - 166 ml DIAGNOSES: 1. Chronic kidney disease, unspecified CKD stage - ICD 9: 585.9, ICD10: N18.9 IMPRESSION/PLAN: > 1 year Appt w/ EZIO Govea MT, PA-C with PSA > Follows with Nephrology for Renal dysfunction and ch ronically elevated sCr EZIO Justin MT, PA-C Referring Provider: SELF [200] Allergies As of Date: 09/18/2019 Noted Allergy Reaction BENADRYL (DIPHENHYDRAMINE HCL) 06/01/2006 Comments: hyper feeling LIPITOR (ATORVASTATIN CALCIUM) 11/22/2004 PRAVASTATIN 11/15/2017 17 - Myalgia ZOCOR (SIMVASTATIN) 11/22/2004 Date Reviewed: 09/18/2019 Reviewed by: Linda Arredondo LPN - Fully Assessed Reason for Visit: Established Patient [175] Cmt: BPH Primary Visit Diagnosis:Chronic kidney disease, unspecified CKD stage [N18.9] Other Visit Diagnosis:Screening PSA (prostate specific antig en) [Z12.5] Order(s):UA DIP, URINE (POC) [[id number]] Order #: [id number] . #:[id number] PSA/PROSTSPECAG DIAG [SQPSA] Order #: [id number] FUTURE Prescriptions as of 09/18/2019 Sig: MECLIZINE 25 MG TABLET Take 1 tablet by mouth every * FINASTERIDE 5 MG TABLET Take 1 tablet by mouth once d* ROSUVASTATIN 5 MG TABLET Take 1 tablet by mouth daily * TAMSULOSIN 0.4 MG CAPSULE Take 1 capsule by mouth twice* VACUUM ERECTION DEVICE SYSTEM* To use as directed. Dx:N52.9 Problem List As Of Date 09/18/2019 Noted Resolved LUMBAGO [M54.5] 09/16/2005 PURE HYPERCHOLESTEROLEM [E78.00] More... LUMBAR DISC DISPLACEMENT [M51.26] OTHER PSORIASIS [L40.8] 02/21/2007 ESOPHAGEAL REFLUX [K21.9] More... Sore throat [J02.9] 09/11/2013 More... Lower urinary tract symptoms (LUTS) [R39.9] 07/19/2014 Essential hypertension [I10] 02/11/2015 BPH (benign prostatic hypertrophy) with urinary*01/15/2016 Impotence of organic origin [N52.9] 01/15/2016 Elevated prostate specific antigen (PSA) [R97.2*02/04/2016 BPH (benign prostatic hyperplasia) [N40.0] Psoriasis [L40.9] More... Medications Discontinued During This Encounter sildenafil (VIAGRA) 50 mg tablet 5 ta* 0 05/28/2016 09/18/2019 Class: Print RX Route: ORAL Sig: Take 1 tablet by mouth as needed. one hour prior to int ercourse Disc: Reason for discontinue is not on file. Disposition: Return in about 1 year (around 09/17/2020). Follow-up and Disposition History Recorded Encounter Status:Closed by ZORAIDA BIRMINGHAM PA-C on 09/18/19 cnpn on 2019-09-14 [facility] Normal 09-14-2019 [place] [facility] WILD CARABALLO ([id number]) 1950 [facility] Date Time Provider Department ([id number]) 09/14/19 [facility] During your visit today, we recorded the following informati on about you: Nilam Borrego LPN, LPN 09/14/2019 8:52 AM Signed ----- Message from René Valdez) Yara sent at 09/13 7:59 AM EDT ----- CKD stable in stage III range. Cholesterol and blood c ounts normal. Continue current regimen. Avoid NSAIDs. Low sodium diet. Keep schedul ed f/u. Nilam Borrego LPN, LPN 09/14/2019 8:55 AM Signed Spoke with pt gave information provided. Pt voices understan jae. Allergies As of Date: 09/14/2019 Noted Allergy Reaction BENADRYL (DIPHENHYDRAMINE HCL) 06/01/2006 Comments: hyper feeling LIPITOR (ATORVASTATIN CALCIUM) 11/22/2004 PRAVASTATIN 11/15/2017 17 - Myalgia ZOCOR (SIMVASTATIN) 11/22/2004 Date Reviewed: 05/28/2019 Reviewed by: Quiana Alvarado Ma - Fully Assessed Reason for Visit: Results [95] Prescriptions as of 09/14/2019 Sig: MECLIZINE 25 MG TABLET Take 1 tablet by mouth every * FINASTERIDE 5 MG TABLET Take 1 tablet by mouth once d* ROSUVASTATIN 5 MG TABLET Take 1 tablet by mouth daily * TAMSULOSIN 0.4 MG CAPSULE Take 1 capsule by mouth twice* SILDENAFIL 50 MG TABLET Take 1 tablet by mouth as nee* VACUUM ERECTION DEVICE SYSTEM* To use as directed. Dx:N52.9 Problem List As Of Date 09/14/2019 Noted Resolved LUMBAGO [M54.5] 09/16/2005 PURE HYPERCHOLESTEROLEM [E78.00] More... LUMBAR DISC DISPLACEMENT [M51.26] OTHER PSORIASIS [L40.8] 02/21/2007 ESOPHAGEAL REFLUX [K21.9] More... Sore throat [J02.9] 09/11/2013 More... Lower urinary tract symptoms (LUTS) [R39.9] 07/19/2014 Essential hypertension [I10] 02/11/2015 BPH (benign prostatic hypertrophy) with urinary*01/15/2016 Impotence of organic origin [N52.9] 01/15/2016 Elevated prostate specific antigen (PSA) [R97.2*02/04/2016 BPH (benign prostatic hyperplasia) [N40.0] Psoriasis [L40.9] More... Encounter Status:Closed by NILAM BORREGO LPN on 09/14/19 psa, diagnostic on 2019-09-13 PSA, Diagnostic 1.42 0.00-2.59 ng/mL Normal 09-13-2019 [facility] ([id number]) Comment: Result Comment: Total PSA te st methodology used is the Electrochemiluminescence Imm unoassay. Performed By: #### LIPB #### [facility] [address] [place], [place] [id number] lipid panel, basic on 2019-09-13 Cholesterol [Mass/Vol] 160 <200 mg/dL Normal 020 [facility] (30036) Comment: Result Comment: <200 mg/dL, Desirable 200-239 mg/dL, Borderline hi gh >239 mg/dL, High Performed By: #### LIPB #### [facility] [address] [place], [place] [address] Cholesterol in HDL 48 >39 mg/dL Normal 09-13-2019 [facility] [Mass/Vol] (74066) Comment: Result Comment: 40-59 mg/dL, Acceptable >59 mg/dL, High: Negative ri sk factor for coronary heart disease <40 mg/dL, Low: Positive ris k factor for coronary heart disease Performed By: #### LIPB #### [facility] [address] [place], [place] [address] Cholesterol in LDL 89 <100 mg/dL Normal 09-13-2019 [facility] [Mass/Vol] [place] ([id number]) Comment: Result Comment: <100 mg/dL, Optimal 100-129 mg/dL, Near optimal/ above optimal 130-159 mg/dL, Borderline hi gh 160-189 mg/dL, High >189 mg/dL, Very high Secondary prevention optimal LDL Cholesterol levels are recommended to be < 70 mg/dL Performed By: #### LIPB #### [facility] [address] [place] [address] Fasting Time 10 hrs Normal 09-13-2019 [facility] (50061) Comment: Performed By: #### LIPB #### [facility] [address] [place] [phone] LDL:HDL Ratio 1.85 <2.54 Normal 09-13-2019 [facility] (52871) Comment: Result Comment: Reference: 1. National Cholesterol Educ ation Program ATP III Guideline At-A-Glance Quick Desk Reference: National Heart, Lung, and Blood Delight. National Institutes of Health. 2001: NIH Publication No. 01-3305. 2. An International Atherosc lerosis Society position paper: global recommendations for the management of dyslipidemia: executive summary, Atherosclerosis. 2014: 232(2):410-413. Performed By: #### LIPB #### [facility] [address] [place] [phone] Non HDL Cholesterol 112 <130 mg/dL Normal 09-13-2019 [facility] (28689) Comment: Result Comment: <130 mg/dL, Optimal 130-159 mg/dL, Near optimal/ above optimal 160-189 mg/dL, Borderline hi gh 190-219 mg/dL, High >219 mg/dL, Very high Secondary prevention optimal non HDL Cholesterol levels are recommended to be < 100 mg/dL Performed By: #### LIPB #### [facility] [address] [place] [address] TC:HDL Ratio 3.33 <5.10 Normal 09-13-2019 [facility] (85968) Comment: Performed By: #### LIPB #### [facility] [address] [place], [place] [address] Triglyceride [Mass/Vol] 116 <150 mg/dL Normal 2019 [facility] ([id number]) Comment: Result Comment: <150 mg/dL, Normal 150-199 mg/dL, Borderline hi gh 200-499 mg/dL, High >499 mg/dL, Very high Performed By: #### LIPB #### [address] [address] VLDL Cholesterol 23 <30 mg/dL Normal 09-13-2019 [facility] (70763) Comment: Performed By: #### LIPB #### [address] [address] comp metabolic panel on 2019-09-13 Albumin [Mass/Vol] 4.5 3.9-4.9 g/dL Normal 09-13-2019 [facility] (32678) Comment: Performed By: #### LIPB #### [address] [address] ALP [Catalytic activity/Vol] 87 38-113 U/L Normal 0 09-13-2019 [facility] (53117) Comment: Performed By: #### LIPB #### [address] [address] ALT [Catalytic activity/Vol] 21 10-54 U/L Normal 0 09-13-2019 [facility] (17808) Comment: Performed By: #### LIPB #### [address] [address] Anion gap [Moles/Vol] 12 9-18 mmol/L Normal 09-13-19 [facility] (20567) Comment: Performed By: #### LIPB #### [address] [address] AST [Catalytic activity/Vol] 29 14-40 U/L Normal 0 09-13-2019 [facility] (57223) Comment: Performed By: #### LIPB #### [facility] [address] [place], [place] [address] Bilirubin [Mass/Vol] 0.6 0.2-1.3 mg/dL Normal 0 [facility] (13616) Comment: Performed By: #### LIPB #### [facility] [address] [place], [place] [address] Calcium [Mass/Vol] 9.6 8.5-10.2 mg/dL Normal 09-13-2019 [facility] (48932) Comment: Performed By: #### LIPB #### [facility] [address] [place], [place] [address] Chloride [Moles/Vol] 101 97-105 mmol/L Normal 0 [facility] (76891) Comment: Performed By: #### LIPB #### [facility] [address] [place], [place] [address] CO2 [Moles/Vol] 23 22-30 mmol/L Normal 09-13-2019 [facility] (11879) Comment: Performed By: #### LIPB #### [facility] [address] [place], [place] [address] Creatinine [Mass/Vol] 1.57 0.73-1.22 mg/dL High 09-13-19 20 [facility] (47369) Comment: Performed By: #### LIPB #### [facility] [address] [place], [place] [address] eGFR- Amer. 54 Normal 09-13-2019 [facility] (26250) Comment: Performed By: #### LIPB #### [facility] [address] [place], [place] [address] GFR/1.73 sq M predicted among 44 . Normal 09-13-2019 [facility] non-blacks MDRD (S/P/Bld) [Vol (17373) rate/Area] Comment: Result Comment: eGFR (Estima neil GFR) Units of measure: mL/min/1.73 meters squared eGFR is derived from the ree xpressed MDRD Study equation using the following parameters: serum creatinine, age, gender and race. The creatinine assay has been calibrated to be traceable to IDMS. An eGFR <60 mL/min/1.73m2 fo r >3 months is consistent with chronic kidney disease. Refer to KDOQI guidelines for clinical interpretation. In patients with unstable re nal function, e.g. those with acute kidney injury, the eGFR may not accurately reflect actual GFR. Performed By: #### LIPB #### [facility] [employer] [facility] [employer] [facility] [address] [place], [place] [address] Glucose [Mass/Vol] 89 74-99 mg/dL Normal 09-13-2019 [facility] (83321) Comment: Result Comment: The [place] Diabetes Association (ADA) provides guidance for cutoff values for fasting glucose and random glucose. The ADA defines fasting as no caloric intake for at least 8 hours. Fas ting plasma glucose results between 100 to 125 mg/dL indicate increased risk for diabetes (prediabetes). Fasting plasma glucose resul ts greater than or equal to 126 mg/dL meet the criteria for diagnosis of diabetes. In the absence of unequivocal hyperglycemia, results should be confirmed by repeat testing. In a patient with classic s ymptoms of hyperglycemia or hyperglycemic crisis, random plasma glucose results greater than or equal to 200 mg/dL meet the criteria for diagnosis of diabetes. Reference: Standards of [facility] Care in Diabetes 2016, [place] Diabetes Association. Diabetes Care. 2016.39(Suppl 1). Performed By: #### LIPB #### [place] [facility] [address] [place], [place] [address] Potassium [Moles/Vol] 4.5 3.7-5.1 mmol/L Normal 09-13-19 [facility] (73274) Comment: Performed By: #### LIPB #### [facility] [address] [place] [address] Protein [Mass/Vol] 7.3 6.3-8.0 g/dL Normal 09-13-2019 [facility] (01686) Comment: Performed By: #### LIPB #### [facility] [address] [place], [place] [address] Sodium [Moles/Vol] 136 136-144 mmol/L Normal 09-13-2019 [facility] (61129) Comment: Performed By: #### LIPB #### [facility] [address] [place] [address] Urea nitrogen [Mass/Vol] 26 9-24 mg/dL High 09-12 [facility] (24087) Comment: Performed By: #### LIPB #### [facility] [place] [address] cbc and differential on 2019-09-13 Abs Baso 0.05 <0.11 k/uL Normal 09-13-2019 [facility] (22813) Comment: Performed By: #### LIPB #### [facility] [address] [place] [address] Abs [place] 0.78 <0.87 k/uL Normal 09-13-2019 [facility] (53677) Comment: Performed By: #### LIPB #### [facility] [address] [place] [address] Abs Neut 4.26 1.45-7.50 k/uL Normal 09-13-2019 [facility] (42778) Comment: Performed By: #### LIPB #### [facility] [address] [place] [address] Absolute nRBC <0.01 <0.01 Normal 09-13-2019 [facility] (61474) Comment: Performed By: #### LIPB #### [facility] [place], [place] [address] Basophils/100 WBC (Bld) 0.7 % Normal 2019 [facility] (68070) Comment: Performed By: #### LIPB #### [facility] [address] [place] [address] DTYPE Auto Diff Normal 09-13-2019 [facility] (48422) Comment: Performed By: #### LIPB #### [facility] [address] [place] [address] Eosinophils (Bld) [#/Vol] <0.03 <0.46 10*3/uL Normal 08-27 [facility] (52173) Comment: Performed By: #### LIPB #### [facility] [place] [address] Eosinophils/100 WBC (Bld) 0.0 % Normal 08-27 [facility] (62765) Comment: Performed By: #### LIPB #### [facility] [address] [place] [address] Erythrocyte distribution 13.1 11.5-15.0 % Normal 09-12 [facility] width (RBC) [Ratio] [place] (74998) Comment: Performed By: #### LIPB #### [facility] [address] [place] [address] Hematocrit (Bld) [Volume 45.8 39.0-51.0 % Normal 09-12 [facility] fraction] [place] (87321) Comment: Performed By: #### LIPB #### [facility] [address] [place] [address] Hemoglobin (Bld) 14.9 13.0-17.0 g/dL Normal 09-13-2019 [facility] [Mass/Vol] [place] (69301) Comment: Performed By: #### LIPB #### [facility] [address] [place], [place] [address] Lymphocytes (Bld) [#/Vol] 1.65 1.00-4.00 k/uL Normal 08-27 [facility] (44945) Comment: Performed By: #### LIPB #### [facility] [place], [place] [address] Lymphocytes/100 WBC (Bld) 24.4 % Normal 08-27 [facility] (91075) Comment: Performed By: #### LIPB #### [facility] [place], [place] [address] MCH (RBC) [Entitic mass] 29.0 26.0-34.0 pG Normal 09-12 [facility] (61982) Comment: Performed By: #### LIPB #### [facility] [address] [place] [address] MCHC (RBC) [Mass/Vol] 32.5 30.5-36.0 g/dL Normal 09-13-19 [facility] (04900) Comment: Performed By: #### LIPB #### [facility] [place], [place] [address] MCV (RBC) [Entitic vol] 89.3 80.0-100.0 fL Normal 09-12 [facility] (45419) Comment: Performed By: #### LIPB #### [facility] [address] [place], [place] [address] Monocytes/100 WBC (Bld) 11.5 % Normal 2019 [facility] (52860) Comment: Performed By: #### LIPB #### [facility] [place], [place] [address] Neutrophils/100 WBC (Bld) 63.4 % Normal 08-27 [facility] (82869) Comment: Performed By: #### LIPB #### [facility] [address] [place] [address] NRBCs 0.0 0 /100 WBC Normal 09-13-2019 [facility] (16745) Comment: Performed By: #### ZACKB #### [place] [address] [place] [address] Platelet mean volume 11.2 9.0-12.7 fL Normal 0 [facility] (Bld) [Entitic vol] [place] (46705) Comment: Performed By: #### ZACKB #### [place] [address] [place] [address] Platelets (Bld) [#/Vol] 256 150-400 k/uL Normal 2019 [facility] (79164) Comment: Performed By: #### ZACKB #### [place] [address] RBC (Bld) [#/Vol] 5.13 4.20-6.00 m/uL Normal 09-13-2019 [facility] (04176) Comment: Performed By: #### ZACKB #### [place] [address] [place] [address] WBC (Bld) [#/Vol] 6.76 3.70-11.00 k/uL Normal 09-13-2019 [facility] (61178) Comment: Performed By: #### LIPB #### [place] [address] [place] [address] cnpn on 2019-09-08 CNPN Telephone (FAMPWS) Normal 09-08-2019 [facility] WILD CARABALLO ([id number]) 1950 [facility] Time Provider Department ([id number]) 09/08/19 [facility]) FAMPWS During your visit today, we recorded the following informati on about you: Yun Lionlfhoop Pss 09/08/2019 10:55 AM Signed Patient requesting routine lab work be ordered b efore upcoming appointment on 11/19 - please advise, thank you Teresa Rodriguezkem SENIOR STAFF CONSULTANT 09/08/2019 11:28 AM Signed Last labs were 01/2019. Pending orders if wanted, needs diag nosis. Please advise Gilberto Orozco MD 09/08/2019 12:34 PM Signed ordered Allergies As of Date: 09/08/2019 Noted Allergy Reaction BENADRYL (DIPHENHYDRAMINE HCL) 06/01/2006 Comments: hyper feeling LIPITOR (ATORVASTATIN CALCIUM) 11/22/2004 PRAVASTATIN 11/15/2017 17 - Myalgia ZOCOR (SIMVASTATIN) 11/22/2004 Date Reviewed: 05/28/2019 Reviewed by: Quiana Alvarado Ma - Fully Assessed Reason for Visit: lab work orders [Other] Reason For Visit History Recorded Primary Visit Diagnosis:Pure hypercholesterolemia [E78.00] Other Visit Diagnosis:Essential hypertension [I10] Order(s):LIPID PANEL BASIC [SQLIPB] Order #: [id number] FUTU RE COMP METABOLIC PANEL [SQCMP] Order #: [id number] FUTURE CBC + DIFF [SQCBCDIF] Order #: [id number] FUTURE Prescriptions as of 09/08/2019 Sig: MECLIZINE 25 MG TABLET Take 1 tablet by mouth every * FINASTERIDE 5 MG TABLET Take 1 tablet by mouth once d* ROSUVASTATIN 5 MG TABLET Take 1 tablet by mouth daily * TAMSULOSIN 0.4 MG CAPSULE Take 1 capsule by mouth twice* SILDENAFIL 50 MG TABLET Take 1 tablet by mouth as nee* VACUUM ERECTION DEVICE SYSTEM* To use as directed. Dx:N52.9 Problem List As Of Date 09/08/2019 Noted Resolved LUMBAGO [M54.5] 09/16/2005 PURE HYPERCHOLESTEROLEM [E78.00] More... LUMBAR DISC DISPLACEMENT [M51.26] OTHER PSORIASIS [L40.8] 02/21/2007 ESOPHAGEAL REFLUX [K21.9] More... Sore throat [J02.9] 09/11/2013 More... Lower urinary tract symptoms (LUTS) [R39.9] 07/19/2014 Essential hypertension [I10] 02/11/2015 BPH (benign prostatic hypertrophy) with urinary*01/15/2016 Impotence of organic origin [N52.9] 01/15/2016 Elevated prostate specific antigen (PSA) [R97.2*02/04/2016 BPH (benign prostatic hyperplasia) [N40.0] Psoriasis [L40.9] More... Encounter Status:Closed by SYLVIA DUMONT LPN on 09/08/19 [facility]08-03 [facility] Telephone (ASW[facility]) Normal 08-03-2019 [place] [facility] WILD CARABALLO ([id number]) 1950 [facility] Date Time Provider Department ([id number]) 08/03/19 [facility]) ASWSTR During your visit today, we recorded the following informati on about you: Cleve Bermudez RN, RN 08/03/2019 2:17 PM Signed Patient will be due for 5 year follow up colonoscopy f or personal history of polyps after 08/28/19. Patient was previously scoped by Dr. Colon. Patient is okay for open access. AKOSUA Suazo RN, RN 09/21/2019 11:27 AM Signed Please try patient. AKOSUA Suazo 10/18/2019 10:41 AM Signed TR OPEN ACCESS QUESTIONNAIRE 1. Are you or could you be ? No 2. Are you currently having any stomach/gastrointestin al issues at this time such as constipation, diarrhea, abdominal pain, rectal bleed ing etc? No 3. Do you have an implanted device such as a defibrillator, pacemaker, Cardiac Stent or deep brain stimulation device? No 4. Do you have any new or past cardiac (heart) o r pulmonary (lung) issues? No 5. Is the patient's BMI 40 or greater? No:There is no height or weight on file to calculate BMI.. Last Wt 09/18/19 : 87.1 kg (192 lb) Last Ht 07/06/18 : 167.6 cm (5' 6) 6. Have you had difficulty with prior sedations or complic ations with other procedures? No 7. Have you had difficulty with anesthesia previously re: ? Difficult intubation? No ? Other difficulty or allerg ic reaction to anesthesia other than post op N/V? No 8. Do you currently use oxygen or a breathing machine at [facility]? No 9. Do you take any narcotics, depression or anti-Anxie ty medications or 3 or more prescription drugs on a daily basis? No 10. Do you use any illegal or recreational drugs? No 11. Have you been hospitalized in the past 6 weeks? No 12. Are you on dialysis or have Chronic Kidney Disease? No 13. Have you been diagnosed with chronic liver disease suc h as hepatitis or cirrhosis? No 14. Do you have a seizure disorder? No 15. Do you have difficulty swallowing? No 16. Do you have ulcerative colitis or Crohn's disease? No 17. Do you take any Blood thinners, including Aspirin or fis h oil? No 18. Do you have any blood disorders (re:hemophiliac)? No 19. Are you Diabetic? No 20. Any other important health informati on we should be made aware of prior to your colonoscopy? No 21. Any alcohol use: No. To be completed by LIP: Patient appropriate for Open Access Colonoscopy: Yes: approp riate for Open Access Procedure Checklist: Prior to closing the encounter: ? Complete questionnaire: Yes ? Confirm Prep order has been Ordered/Pended: Yes. ? Patient's procedure could be delayed if not given th e script for the prep. Please ensure the prep is escripted to pharmacy or jani nted. Instructions for the prep will print upon filing or pending this smartset. ? Please send all open access questionnaires to [facility] Edgard marcelino [facility] #[id number] Sylvia Davis 10/18/2019 10:41 AM Signed Health Information For Patients and the Community How to Prepare for Your Norris noscopy Using Golytely, Nulytely, Trilyte or Colyte Preparations IMPORTANT - Please Read These Instructions at Least 2 Weeks Before Your Colonoscopy Lorenz Instructions: ?Your bowel must be empty so that your doctor can clearly vi ew your colon. Follow all of the instructions in this handout EXACTLY as they are written. If you do NOT follow the directions for when to start drinki ng the bowel preparation (see next page), your colonoscopy WILL be cancel led. ?Do NOT eat any solid food the ENTIRE day before your colono scopy. ?Buy your bowel preparation at least 5 days before your colo noscopy. ?Do NOT mix the solution until the day before your colonosco py. Designated Supervisor Composing Room on the Day of Your Exam A responsible family member or friend MUST come with y ou to your colonoscopy and REMAIN in the endoscopy area until you are discharged! You are NOT ALLOWED to drive, take a taxi or bus, or leave the Endoscopy Center ALONE. If you do not have a responsible driver/merchandiser (family member or friend) with you to take you home, your exam cannot be done with sedation and will be cancelled. Medications Some of the medicines you take may need to be st opped or adjusted before your colonoscopy. You MUST call the doctor who ordered any of the following medicines at least 2 weeks before your colonoscopy. ?Blood thinners -- such as C oumadin? (warfarin), Plavix? (clopidogrel), Ticlid? (ticlopidine hydrochloride), Agrylin? (anagrelide), Xarelt o? (Rivaroxaban), Pradaxa? (Dabigatran), Eliquis? (Apixaban), and Effient? (Pr asugrel). ?Insulin or diabetes pills. Please call the doct or that monitors your glucose levels. Your insulin dosage may need to be adjusted due to t he diet restrictions required with this bowel pr eparation. (Please bring your diabetes medicines with you on the day of your procedure.) If you take aspirin, take it and ALL other medications presc ribed by your doctor. On the day of your colonoscopy, take your medicati ons with a sip of water. Revised 04/2016 1 Five (5) Days Before Your Colonoscopy ?Do NOT take medicines that stop diarrhe a -- such as Imodium?, Kaopectate?, or Pepto Bismol?. ?Do NOT take fiber supplements -- such as Metamu cil?, Citrucel?, or Perdiem?. ?Do NOT take products that c ontain iron -- such as multi-vitamins -- (the label lists what is in the products). ?Do NOT take vitamin E. Buy the prescription bowel preparation solution at your [facility] or [facility]. Three (3) Days Before Your Colonoscopy Do NOT eat high-fiber foods -- such as p opcorn, beans, seeds (flax, sunflower, quinoa), multigrain bread, nuts, salad/vegetables, or fresh and dried fruit. One (1) Day Before Your Colonoscopy Only drink clear liquids the ENTIRE DAY before your colonoscopy. Do NOT eat any solid foods. Drink at least 8 ounces of clear li quids every hour after waking up. The clear liquids you can drink include: ?water, apple, or white grape juice; broth; coffee or tea (without milk or creamer); clear carbonated beverages such as donovan melquiades or lemon-absentee-shawnee soda; Gatorade? o r other sports drinks (not red); Shoaib-Aid? or other flavored drinks (not red). You may eat plain jello or other gelatins (not red) or pop sicles (not red). Do NOT drink alcohol on the day before or the day of the pro cedure. 2 Revised 04/2016 When to Mix and Drink Your Bowel Prep Follow the instructions on the label. After mixi ng, place the solution in the refrigerator for a couple of hours before drinking. You may add the flavor packet that came with the bowel preparation. DO NOT add ice, sugar or any flavorings to the solution. Evening Before Your Colonoscopy ?Start drinking the bowel preparation at 6 PM the evening be fore your colonoscopy. Drink an 8-oz glass of bowel preparation ever y 10 minutes. You must finish drinking the solution by 9 PM the night before y our scheduled procedure. ?You may continue to drink clear liquids only until midnight . Do NOT eat or drink ANYTHING after midni ght the night before your procedure or your procedure may be cancelled. This is for your safe ty and will reduce the risk of having any food or liquid in your stomach move into your lungs (aspiration) during a procedure. If you take aspirin, take it and ALL other presc ribed medicines with a sip of water on the day of your colonoscopy. Contact Information: If you are unable to keep your appoin tment or have any questions about the instructions, please call the facility where the procedure is being performed. Call between the hours of 8:00 AM and 5:0 0 PM. If you are calling after 5:00 PM, please call Nurse centralized traffic control operator at [phone]. [facility] [address] [place] [id number] Index # [id number] Revised 04/2016 3 Colonoscopy Procedure Overview Please Read Prior to the Procedure What is a Colonoscopy A colonoscopy is an outpatient procedure in which the inside of the large intestine (colon and rectum) is examined. A colonoscopy is commonly used to evaluate gastrointestinal symptoms, such as rectal and int estinal bleeding, abdominal pain, or changes i n bowel habits. Colonoscopies are also performed in individuals without symptoms to check for colorectal polyps or cancer. A screening colonoscopy is recommended for anyone 50 years of age and older, and for anyone with parents, siblings or children with a history of colorectal cancer or polyps. What Happens Before a Colonoscopy To have a successful colonoscopy, your bowel must be empty s o that your physician can clearly view the colon. To do this, it is very important to read and follow all of the instructions given to you at [facility] 2 weeks BEFORE your exam. If your bowel is not empty, your colonoscopy will not be successful and may have to be repeated. If you feel nauseated or vomit while taking the bowel prepar ation, wait 30 minutes before drinking more fluid and s tart with small sips of solution. Some activity (such as walking) or a few soda crackers may help decrease the nausea you are feeling. If the nausea persists, please contact nurs e director of occupational therapy at [phone]. You may experience skin irri tation around the anus due to the passage of liquid stools. To prevent and treat skin irritation, you should: ?Apply Vaseline? or Desitin? ointment to the skin around the anus before drinking the bowel preparation medicatio ns. These products can be purchased at any drugstore. ?Wipe the skin after each bowel movement with di sposable wet wipes instead of toilet paper. These are found in the toilet paper area of [facility]. ?Sit in a bathtub filled with warm water for 10 to 15 minutes after you finish passing a stool; after soaking, blot the skin dry with a sof t cloth, apply Vaseline? or Desitin? ointment to the anal area, and place a cotton ball just outside your anus to absorb leaking fluid. What Happens During a Colonoscopy During a colonoscopy, an experienced physician uses a colono scope (a long, flexible instrument about 1/2 inch in diameter) to view the lining of the colon. The colonoscope is inserted into the rectum and adv anced through the large intestine. If necessar y during a colonoscopy, small amounts of tissue can be removed for analysis (a biopsy) and polyps can be i dentified and entirely removed. In many cases, a colonoscopy allows acc urate diagnosis and treatment of colorectal problems without the need for a major operatio n. Revised 04/2016 5 ?You are asked to wear a hospital gown and an IV will be sta rted. ?You are given a pain reliev er and a sedative intravenously (in your vein). You will feel relaxed and somewhat drowsy. ?You will lie on your left side, with your knees drawn up towards your chest. ?A small amount of air is us ed to expand the colon so the physician can see the colon artis. ?You may feel mild cramping during the procedure. Cramping can be reduced by taking slow, deep breaths. ?The colonoscope is slowly withdrawn while the lining of you r bowel is carefully examined. ?The procedure lasts from 30 minutes to 1 hour. What Happens After a Colonoscopy ?You will stay in a recovery room for observation until you are ready for discharge. ?You may feel some cramping or a sensation of having gas, bu t this quickly passes. ?If sedation has been given, a responsible family member or friend must drive you home. ?Avoid alcohol, driving, and operating machinery for 24 hours following the procedure. ?Unless otherwise instructed, you may immediatel y return to your normal diet. We recommend you wait until the day after your procedure to resume normal activities. ?If polyps were removed or a biopsy was taken, the [facility] sician performing your colonoscopy will tell you wh en it is safe to resume taking your blood thinners. ?If a biopsy was taken or a polyp was removed, y ou may notice a little amount of rectal bleeding for 1 to 2 days after the procedure. If you have a large amount of rectal bleeding, high or persi stent fevers, or severe abdominal pain within the next 2 weeks, please go to your local emerg ency room and call the physician who performed your exam. 6 Revised 04/2016 ?Copyright 3853-4333 [facility]. All rights reserved. Revised 04/2016 Sylvia Davis 10/18/2019 10:50 AM Signed 11-13-2019 [facility] Sylvia Livingston MD 12/08/2019 8:01 AM Signed Order approved. Allergies As of Date: 08/03/2019 Noted Allergy Reaction BENADRYL (DIPHENHYDRAMINE HCL) 06/01/2006 Comments: hyper feeling LIPITOR (ATORVASTATIN CALCIUM) 11/22/2004 PRAVASTATIN 11/15/2017 17 - Myalgia ZOCOR (SIMVASTATIN) 11/22/2004 Date Reviewed: 05/28/2019 Reviewed by: Quiana Alvarado Ma - Fully Assessed Reason for Visit: Open Access Outpatient Colonoscopy [Other] Reason For Visit History Recorded Primary Visit Diagnosis:Special screening for malignant neop lasms, colon [Z12.11] Order(s):[] Order #: [id number] COLONOSCOPY SCRN NOT HIGH RISK [[id number]] Order #: [id number] 1Qty: 1 FUTURE PRE-PROCEDURE AND PRE-OPERATIVE COVID [SQPOCOVD] Order #: [id number] FUTURE Prescriptions as of 08/03/2019 Sig: PEG 3350 240 GRAM-ELECTROLYTE* Take 4,000 mL by mouth one ti * X MECLIZINE 25 MG TABLET Take 1 tablet by mouth every * X FINASTERIDE 5 MG TABLET Take 1 tablet by mouth once d* X ROSUVASTATIN 5 MG TABLET Take 1 tablet by mouth daily * X TAMSULOSIN 0.4 MG CAPSULE Take 1 capsule by mouth twice* X SILDENAFIL 50 MG TABLET Take 1 tablet by mouth as nee* VACUUM ERECTION DEVICE SYSTEM* To use as directed. Dx:N52.9 Problem List As Of Date 08/03/2019 Noted Resolved LUMBAGO [M54.5] 09/16/2005 PURE HYPERCHOLESTEROLEM [E78.00] More... LUMBAR DISC DISPLACEMENT [M51.26] OTHER PSORIASIS [L40.8] 02/21/2007 ESOPHAGEAL REFLUX [K21.9] More... Sore throat [J02.9] 09/11/2013 More... Lower urinary tract symptoms (LUTS) [R39.9] 07/19/2014 Essential hypertension [I10] 02/11/2015 BPH (benign prostatic hypertrophy) with urinary*01/15/2016 Impotence of organic origin [N52.9] 01/15/2016 Elevated prostate specific antigen (PSA) [R97.2*02/04/2016 BPH (benign prostatic hyperplasia) [N40.0] Psoriasis [L40.9] More... Other instructions from your clinician: Health Information For Patients and the Community How to Prepare for Your Colonoscopy Using Golytely, Nulytely , Trilyte or Colyte Preparations IMPORTANT - Please Read These Instructions at Least 2 Weeks Before Your Colonoscopy Lorenz Instructions: ?Your bowel must be empty so that your doctor can clearly vi ew your colon. Follow all of the instructions in this handout EXACTLY as th leia are written. If you do NOT follow the directions for when to start drinki ng the bowel preparation (see next page), your colonoscopy WILL be cancel led. ?Do NOT eat any solid food the ENTIRE day before your colono scopy. ?Buy your bowel preparation at least 5 days before your colo noscopy. ?Do NOT mix the solution until the day before your colonosco py. Designated Supervisor Composing Room on the Day of Your Exam A responsible family member or friend MUST come with you to your colonoscopy and REMAIN in the endoscopy area until you are discharged! You are NOT ALLOWED to drive, take a taxi or bus, or leave the Endoscopy Center ALONE. If you do not have a responsible driver/merchandiser (family member or fr iend) with you to take you home, your exam cannot be done with sedation and will be cancelled. Medications Some of the medicines you take may need to be stopped or adj usted before your colonoscopy. You MUST call the doctor who ordered any of the following me dicines at least 2 weeks before your colonoscopy. ?Blood thinners -- such as Coumadin? (warfarin), Plavix? (cl opidogrel), Ticlid? (ticlopidine hydrochloride), Agrylin? (anagrelide), Xarelto? (Rivaroxaban), Pradaxa? (Dabigatran), Eliquis? (Apixaban), a nd Effient? (Prasugrel). ?Insulin or diabetes pills. Please call the doctor that greyson tors your glucose levels. Your insulin dosage may need to be adjusted due to the diet restrictions required with this bowel preparation. (Ple ase bring your diabetes medicines with you on the day of your procedure.) If you take aspirin, take it and ALL other medications presc ribed by your doctor. On the day of your colonoscopy, take your medication s with a sip of water. Revised 04/2016 1 Five (5) Days Before Your Colonoscopy ?Do NOT take medicines that stop diarrhea -- such as Imodium ?, Kaopectate?, or Pepto Bismol?. ?Do NOT take fiber supplements -- such as Metamucil?, Citruc el?, or Perdiem?. ?Do NOT take products that contain iron -- such as multi-vit amins -- (the label lists what is in the products). ?Do NOT take vitamin E. Buy the prescription bowel preparation solution at your [facility] pharmacy or drugstore pharmacy. Three (3) Days Before Your Colonoscopy Do NOT eat high-fiber foods -- such as popcorn, beans, seeds (flax, sunflower, quinoa), multigrain bread, nuts, salad/vegetables , or fresh and dried fruit. One (1) Day Before Your Colonoscopy Only drink clear liquids the ENTIRE DAY before your colonosc opy. Do NOT eat any solid foods. Drink at least 8 ounces of clear liquid s every hour after waking up. The clear liquids you can drink include: ?water, apple, or white grape juice; broth; coffee or tea (without milk or creamer); clear carbonated beverages such as donovan melquiades or lemon-absentee-shawnee soda; Gatorade? o r other sports drinks (not red); Shoaib-Aid? or other flavored drinks (not red). You may eat plain jello or other gelatins (not red) or popsi cles (not red). Do NOT drink alcohol on the day before or the day of the pro cedure. 2 Revised 04/2016 When to Mix and Drink Your Bowel Prep Follow the instructions on the label. After mixing, place th e solution in the refrigerator for a couple of hours before drinking. You may add the flavor packet that came with the bowel preparation. DO NOT a dd ice, sugar or any flavorings to the solution. Evening Before Your Colonoscopy ?Start drinking the bowel preparation at 6 PM the evening be fore your colonoscopy. Drink an 8-oz glass of bowel preparation every 10 minutes. You must finish drinking the solution by 9 PM the night befo re your scheduled procedure. ?You may continue to drink clear liquids only until midnight . Do NOT eat or drink ANYTHING after midnight the night before your procedure or your procedure may be cancelled. This is for yo ur safety and will reduce the risk of having any food or liquid in your st omach move into your lungs (aspiration) during a procedure. If you take aspirin, take it and ALL other prescribed medici gricelda with a sip of water on the day of your colonoscopy. Contact Information: If you are unable to keep your appointm ent or have any questions about the instructions, please call the facility where the procedure is being perfor med. Call between the hours of 8:00 AM and 5:00 PM. If you are calling after 5:00 PM, please call Nurse centralized traffic control operator at [phone]. [facility] [address] [place] [address] Index # [id number] Revised 04/2016 3 Colonoscopy Procedure Overview Please Read Prior to the Procedure What is a Colonoscopy A colonoscopy is an outpatient procedure in which the inside of the large intestine (colon and rectum) is examined. A colonoscopy is c ommonly used to evaluate gastrointestinal symptoms, such as rectal and in testinal bleeding, abdominal pain, or changes in bowel habits. Colono scopies are also performed in individuals without symptoms to check for colorectal polyps or cancer. A screening colonoscopy is recommended for anyone 50 years of age and older, and for anyone with parents, sibling s or children with a history of colorectal cancer or polyps. What Happens Before a Colonoscopy To have a successful colonoscopy, your bowel must be empty s o that your physician can clearly view the colon. To do this, it is very important to read and follow all of the instructions given to you at [facility] t 2 weeks BEFORE your exam. If your bowel is not empty, your colonoscopy will not be successful and may have to be repeated. If you feel nauseated or vomit while taking the bowel prepar ation, wait 30 minutes before drinking more fluid and start with small sips of solution. Some activity (such as walking) or a few soda crackers may h elp decrease the nausea you are feeling. If the nausea persists, please c ontact nurse director of occupational therapy at [phone]. You may experience skin irritation around the anus due to th e passage of liquid stools. To prevent and treat skin irritation, you fernando uld: ?Apply Vaseline? or Desitin? ointment to the skin around the anus before drinking the bowel preparation medications. These products c an be purchased at any drugstore. ?Wipe the skin after each bowel movement with disposable wet wipes instead of toilet paper. These are found in the toilet paper area of the store. ?Sit in a bathtub filled with warm water for 10 to 15 minute s after you finish passing a stool; after soaking, blot the skin dry wit h a soft cloth, apply Vaseline? or Desitin? ointment to the anal area , and place a cotton ball just outside your anus to absorb leaking fluid. What Happens During a Colonoscopy During a colonoscopy, an experienced physician uses a colono scope (a long, flexible instrument about 1/2 inch in diameter) to view the lining of the colon. The colonoscope is inserted into the rectum and advan layne through the large intestine. If necessary during a colonoscopy, smal l amounts of tissue can be removed for analysis (a biopsy) and polyps can be identified and entirely removed. In many cases, a colonoscopy allows ac curate diagnosis and treatment of colorectal problems without the n eed for a major operation. Revised 04/2016 5 ?You are asked to wear a hospital gown and an IV will be sta rted. ?You are given a pain reliever and a sedative intravenously (in your vein). You will feel relaxed and somewhat drowsy. ?You will lie on your left side, with your knees drawn up to wards your chest. ?A small amount of air is used to expand the colon so the ph ysician can see the colon artis. ?You may feel mild cramping during the procedure. Cramping can be reduced by taking slow, deep breaths. ?The colonoscope is slowly withdrawn while the lining of you r bowel is carefully examined. ?The procedure lasts from 30 minutes to 1 hour. What Happens After a Colonoscopy ?You will stay in a recovery room for observation until you are ready for discharge. ?You may feel some cramping or a sensation of having gas, bu t this quickly passes. ?If sedation has been given, a responsible family member or friend must drive you home. ?Avoid alcohol, driving, and operating machinery for 24 hours following the procedure. ?Unless otherwise instructed, you may immediately return to your normal diet. We recommend you wait until the day after your procedu re to resume normal activities. ?If polyps were removed or a biopsy was taken, the physician performing your colonoscopy will tell you when it is safe to resume meenu ing your blood thinners. ?If a biopsy was taken or a polyp was removed, you may notic e a little amount of rectal bleeding for 1 to 2 days after the procedur e. If you have a large amount of rectal bleeding, high or persistent fevers , or severe abdominal pain within the next 2 weeks, please go to your [facility] emergency room and call the physician who performed your exam. 6 Revised 04/2016 ?Copyright 5138-3199 [facility]. All rights reserved. Revised 04/2016 Prescriptions ordered this encounter Disp Refills Start End PEG 3350 240 GRAM-ELECTROLYTES 22.72* 4000* 0 12/08/201901/2020 Route: ORAL Sig: Take 4,000 mL by mouth one time only for 1 dose. Encounter Status:Closed by CLEVE BERMUDEZ on 12/26/19 progress on 2019-05 PROGRESS HNO ID: [id number] Normal 05-28-2019 [facility] Author: Janeth (Retail Client Manager) [facility] ([id number]) Service: ? Author Type: Nurse Practitioner Type: Progress Notes Filed: 05/28/2019 10:47 AM Note Text: CC: Patient presents with: Throat Problem: dryness with cough AND sneeze x last night HPI: Wild Caraballo is a 68 year old male who presents to the [facility] with complaint of respiratory symptoms starting last night. Associated symptoms includes sore throat, nasal congestion, headache, cough and chills. Denies body aches, fever, ear pain, wheezing and dyspnea. Treatments tried include nothing so far. Sick contacts: yes, grandson diagnosed with strep History of asthma, frequent episodes of bronchitis, chronic bronchitis, bronchiectasis or COPD: No Smoker: No The ROS is otherwise negative. The patient's pmh, medications, allergies, and past visits a re reviewed. PHYSICAL EXAM: BP 140/86 Pulse 72 Temp 36.7 ?C (98.1 ?F) (Left Tympanic ) Resp 16 Wt 88.1 kg (194 lb 3.2 oz) SpO2 97% BMI 31.34 kg/m? General appearance: tired/ill appearing, alert, cooperative, pleasant, in no acute distress Head: Normocephalic Eyes: conjunctiva pink and moist, no icterus, sclera white, non-injected Ears: Right ear: External ear/canal- Normal, TM - clear with good landmarks. Left ear: External ear/canal- Normal, TM - clear with good landmarks Nose: clear, no sinus tenderness. Oropharynx:mild erythema, without exudates present, tonsilla r hypertrophy: 2+ Neck:supple and positive findings: few small anterior cervic al nodes Heart: Negative. RRR without obvious murmur, gallop, or rubs . No ectopy. Lungs: clear to auscultation, without rales or wheeze, good air exchange ASSESSMENT/PLAN: 1. Sore throat - ICD9: 462, ICD10: J02.9 - suspect viral - Rapid Strep negative in the office today and Throat cultur e pending - Discussed supportive care treatment with fluids, rest and analgesia. - The patient may also use warm salt water gargles, throat l ozenges and/or OTC throat spray as needed. - The patient should follow up in 7 to 10 days if symptoms p ersist or worsen - RAPID STREP TEST B/O - GROUP A STREPTOCOCCUS BY PCR Prescription instructions reviewed with patient as applicabl e. Potential red flag symptoms discussed with the patient. Reviewed appro priate action plan to take if red flag symptoms occur. Patient agreeable t o treatment plan. Janeth Linares, BONNIE.LEAD SOFTWARE ENGINEER group a strep by pcr on 2019-05-28 GAS Specimen Source Throat Swab Normal 05-28-19 20 [facility] ([id number]) Comment: Performed By: #### GASPCR ## ## [facility] [address] [id number] Group A Strep PCR Negative for Group A Normal 0 05-28-2019 [facility] Streptococcus by PCR. [place] ([id number]) Comment: Result Comment: This test wa s developed and its performance characteristics determined by [facility]'s [facility] ([facility]). It has not been cleared or a pproved by the FDA. [facility] is regulated under CLIA as qualified to perform high complexity testing. This test is used for clinical purposes. It should not be regarded as inv estigational or for research . Performed By: #### GASPCR ## ## [facility] [address] [place], [place] [address] cnov on 2019-05-28 CNOV Office Visit (UCWSTR) Normal 05-28-19 [place] [facility] WILD CARABALLO ([id number]) 1950 [facility] Date Time Provider Department ([id number]) 05/28/19 10:15 AM JANETH LINARES (MAGO) [facility] During your visit today, we recorded the following informati on about you: Temperature Pulse Respiration Blood pressure 98.1 degrees 72/minute 16/minute 140/86 Weight 88.1 kg Janeth Linares APRN.CNP 05/28/2019 10:47 AM Signed CC: Patient presents with: Throat Problem: dryness with cough AND sneeze x last night HPI: Wild Caraballo is a 68 year ol d male who presents to the office with complaint of respiratory symptoms starting last night. Associated symptoms includes sore throat, nasal congestion, headache, cough and chills. Denies body aches, fever, ear pain, wheezing and dyspnea. Treatments tried include nothing so far. Sick contacts: yes, grandson diagnosed with strep History of asthma, frequent episodes of bronchitis, chronic bronchitis, bronchiectasis or COPD: No Smoker: No The ROS is otherwise negative. The patient's pmh, medications, allergies, and past visits a re reviewed. PHYSICAL EXAM: BP 140/86 Pulse 72 Temp 36.7 ?C (98.1 ?F) (Left Tympanic ) Resp 16 Wt 88.1 kg (194 lb 3.2 oz) SpO2 97% BMI 31.34 kg/m? General appearance: tired/ill appearing, alert, jayce ative, pleasant, in no acute distress Head: Normocephalic Eyes: conjunctiva pink and moist, no icterus, sclera white, non-injected Ears: Right ear: External ear/canal- Normal, TM - manuel r with good landmarks. Left ear: External ear/canal- Normal, TM - clear with good l andmarks Nose: clear, no sinus tenderness. Oropharynx:mild erythema, without exudates prese nt, tonsillar hypertrophy: 2+ Neck:supple and positive findings: few small anterior cervic al nodes Heart: Negative. RRR without obvious murmur, gallop, or rubs . No ectopy. Lungs: clear to auscultation, without rales or wheeze, good air exchange ASSESSMENT/PLAN: 1. Sore throat - ICD9: 462, ICD10: J02.9 - suspect viral - Rapid Strep negative in the office today and Throat cultur e pending - Discussed supportive care treatment with fluids, rest and analgesia. - The patient may also use warm salt aimee er gargles, throat lozenges and/or OTC throat spray as needed. - The patient should follow up in 7 to 10 days if symp toms persist or worsen - RAPID STREP TEST B/O - GROUP A STREPTOCOCCUS BY PCR Prescription instructions reviewed with patient as kvng licable. Potential red flag symptoms discussed with the patient. Review ed appropriate action plan to take if red flag symptoms occur. Patient agreeable to treatm ent plan. TYE Betancourt APRN.CNP 05/28/2019 10:43 AM Signed 1.) Get more rest than you usually do - this ynes l speed your recovery. If you push hard with your usual busy schedule, you will be sicker longer. 2.) Drink a lot of water - enough to make you urinate ever y 2-3 hours (your urine should be a light yell ow color). This helps thin the phlegm and sooth the airways. Gatorade (G2) is less in sugar and repl aces your electrolytes if not eating well. 3.) Run a cool mist humidifier in your bedroom on high with the door closed. This is a natural way to dec ongest, and it helps lessen scratchy throats, nasal stuffiness and coughs. 4.) Runny nose and congestion may improve with the use of de congestants. Pseudoephedrine is a decongestant that can improve nasal con gestion. Most drugstores in the [facility] whit carry pseudoephedrine behind the counter, so it must be requested from the pharmacist (a prescription is not required). Do not take if you have uncontrolled high blood pressure Antihistamines such as diphe nhydramine (Benadryl?) may also help, but can cause side effects such as drowsiness and drying of the eyes, nose , and mouth. 5) For nasal congestion, sinus pain/pressure: Nasal sp ray such as Flonase of Nasacort, available over the counter General information: * Green or yellow color does not mean you need an antibiotic; secretions can be green or yellow with viruses, such as the common cold * The average cold lasts 6-12 days. Follow-up in one week if symptoms persist or sooner if worse n Referring Provider: SELF [200] Allergies As of Date: 05/28/2019 Noted Allergy Reaction BENADRYL (DIPHENHYDRAMINE HCL) 06/01/2006 Comments: hyper feeling LIPITOR (ATORVASTATIN CALCIUM) 11/22/2004 PRAVASTATIN 11/15/2017 17 - Myalgia ZOCOR (SIMVASTATIN) 11/22/2004 Date Reviewed: 05/28/2019 Reviewed by: Quiana Alvarado Ma - Fully Assessed Reason for Visit: Throat Problem [109] Cmt: dryness with cough AND sneeze x la st night Primary Visit Diagnosis:Sore throat [J02.9] Order(s):RAPID STREP TEST B/O [[id number]] Order #: [id number] GROUP A STREPTOCOCCUS BY PCR [[id number]] Order #: [id number] Prescriptions as of 05/28/2019 Sig: MECLIZINE 25 MG TABLET Take 1 tablet by mouth every * FINASTERIDE 5 MG TABLET Take 1 tablet by mouth once d* ROSUVASTATIN 5 MG TABLET Take 1 tablet by mouth daily * TAMSULOSIN 0.4 MG CAPSULE Take 1 capsule by mouth twice* SILDENAFIL 50 MG TABLET Take 1 tablet by mouth as nee* VACUUM ERECTION DEVICE SYSTEM* To use as directed. Dx:N52.9 Problem List As Of Date 05/28/2019 Noted Resolved LUMBAGO [M54.5] 09/16/2005 PURE HYPERCHOLESTEROLEM [E78.00] More... LUMBAR DISC DISPLACEMENT [M51.26] OTHER PSORIASIS [L40.8] 02/21/2007 ESOPHAGEAL REFLUX [K21.9] More... Sore throat [J02.9] 09/11/2013 More... Lower urinary tract symptoms (LUTS) [R39.9] 07/19/2014 Essential hypertension [I10] 02/11/2015 BPH (benign prostatic hypertrophy) with urinary*01/15/2016 Impotence of organic origin [N52.9] 01/15/2016 Elevated prostate specific antigen (PSA) [R97.2*02/04/2016 BPH (benign prostatic hyperplasia) [N40.0] Psoriasis [L40.9] More... Other instructions from your clinician: 1.) Get more rest than you usually do - this will speed your recovery. If you push hard with your usual busy schedule, you will be sic ker longer. 2.) Drink a lot of water - enough to make you urinate every 2-3 hours (your urine should be a light yellow color). This helps thin the phlegm and sooth the airways. Gatorade (G2) is less in sugar and re places your electrolytes if not eating well. 3.) Run a cool mist humidifier in your bedroom on high with the door closed. This is a natural way to decongest, and it helps les sen scratchy throats, nasal stuffiness and coughs. 4.) Runny nose and congestion may improve with the use of de congestants. Pseudoephedrine is a decongestant that can improve nasal con gestion. Most drugstores in the [place] carry pseudoephedrine behind the counter, so it must be requested from the pharmacist (a prescription is not required). Do not take if you have uncontrolled high blood p ressure Antihistamines such as diphenhydramine (Benadryl?) may also help, but can cause side effects such as drowsiness and drying of the eyes , nose, and mouth. 5) For nasal congestion, sinus pain/pressure: Nasal spray jacobo ch as Flonase of Nasacort, available over the counter General information: * Green or yellow color does not mean you need an antibiotic ; secretions can be green or yellow with viruses, such as the common cold * The average cold lasts 6-12 days. Follow-up in one week if symptoms persist or sooner if worse n Encounter Status:Closed by JANETH LINARES CNP on 05/28/19 progress on 2019-01 PROGRESS HNO ID: [id number] Normal 02-14-2019 [facility] Author: Josephine Delaney LPN ([id number]) Service: ? Author Type: ? Type: Progress Notes Filed: 02/14/2019 11:32 AM Note Text: Patient presents for Prevnar 13 vaccine. Denies any problems at this time. Tolerated injection well. Josephine Delaney LPN cnnurse on [facility] Nurse Visit (FAMPWS) Normal [address] [place] [address] [facility] WILD CARABALLO ([id number]) 1950 [facility] Date Time Provider Department ([id number]) 02/14/19 11:30 AM [facility] During your visit today, we recorded the following informati on about you: Josephine Delaney LPN 02/14/2019 11:32 AM Signed Patient presents for Prevnar 13 vaccine. Denies any problems at this time. Tolerated injection well. Josephine Delaney LPN Referring Provider: RENÉ LIVINGSTON) [[id number]] Allergies As of Date: 02/14/2019 Noted Allergy Reaction BENADRYL (DIPHENHYDRAMINE HCL) 06/01/2006 Comments: hyper feeling LIPITOR (ATORVASTATIN CALCIUM) 11/22/2004 PRAVASTATIN 11/15/2017 17 - Myalgia ZOCOR (SIMVASTATIN) 11/22/2004 Date Reviewed: 02/03/2019 Reviewed by: Kristian Palacio MA - Fully Assessed Reason for Visit: Imm/Inj [58] Primary Visit Diagnosis:Need for vaccination [Z23] Order(s):PNEUMOCOCCAL-13 VACCINE PCV-13 [[id number]] Order #: [id number] Prescriptions as of 02/14/2019 Sig: ROSUVASTATIN 5 MG TABLET Take 1 tablet by mouth daily * FINASTERIDE 5 MG TABLET Take 1 tablet by mouth once d* TAMSULOSIN 0.4 MG CAPSULE Take 1 capsule by mouth twice* SILDENAFIL 50 MG TABLET Take 1 tablet by mouth as nee* VACUUM ERECTION DEVICE SYSTEM* To use as directed. Dx:N52.9 Problem List As Of Date 02/14/2019 Noted Resolved LUMBAGO [M54.5] 09/16/2005 PURE HYPERCHOLESTEROLEM [E78.00] More... LUMBAR DISC DISPLACEMENT [M51.26] OTHER PSORIASIS [L40.8] 02/21/2007 ESOPHAGEAL REFLUX [K21.9] More... Sore throat [J02.9] 09/11/2013 More... Lower urinary tract symptoms (LUTS) [R39.9] 07/19/2014 Essential hypertension [I10] 02/11/2015 BPH (benign prostatic hypertrophy) with urinary*01/15/2016 Impotence of organic origin [N52.9] 01/15/2016 Elevated prostate specific antigen (PSA) [R97.2*02/04/2016 BPH (benign prostatic hyperplasia) [N40.0] Psoriasis [L40.9] More... Encounter Status:Closed by JOSEPHINE DELANEY LPN on 02/14/19 cnpn on 2019-02-08 CNPN Telephone (FAMPWS) Normal 02-08-2019 [place] WILD Zhang ([id number]) 1950 [facility] Date Time Provider Department ([id number]) 02/08/19 RENÉ LIVINGSTON) FAMPWS During your visit today, we recorded the following informati on about you: Rut Olmedo Ma 02/08/2019 11:15 AM Signed Patient was in for appointment with Dr. Nohemi chávez asked if he should get prev 13 since over 65? Please advise and if agree should g et than will have schedulers call to make nurse appointment. Was not edgard e if this is something pcp desired since patient was just seen 02/03. Rut Livingston MD 02/08/2019 11:19 AM Signed Yes would recommend Prevnar 13 with Pneumovax in 1 year. Discussed this in 2018 and patient refused which is why this is no longer showing up under his HM. Kristian Palacio MA 02/08/2019 1:50 PM Signed Please contact patient for Nurse visit - prevnar 13 injectio n Harpreet Humphrey 02/09/2019 8:32 AM Signed [facility] with [facility] for 02/14/19 at 11:30 am. Allergies As of Date: 02/08/2019 Noted Allergy Reaction BENADRYL (DIPHENHYDRAMINE HCL) 06/01/2006 Comments: hyper feeling LIPITOR (ATORVASTATIN CALCIUM) 11/22/2004 PRAVASTATIN 11/15/2017 17 - Myalgia ZOCOR (SIMVASTATIN) 11/22/2004 Date Reviewed: 02/03/2019 Reviewed by: Kristian Palacio MA - Fully Assessed Reason for Visit: Future Appointment [256] Primary Visit Diagnosis:Need for vaccination [Z23] Order(s):PNEUMOCOCCAL-13 VACCINE PCV-13 [[id number]] Order #: [id number] Prescriptions as of 02/08/2019 Sig: X ROSUVASTATIN 5 MG TABLET Take 1 tablet by mouth daily * X FINASTERIDE 5 MG TABLET Take 1 tablet by mouth once d* X TAMSULOSIN 0.4 MG CAPSULE Take 1 capsule by mouth twice* SILDENAFIL 50 MG TABLET Take 1 tablet by mouth as nee* VACUUM ERECTION DEVICE SYSTEM* To use as directed. Dx:N52.9 Problem List As Of Date 02/08/2019 Noted Resolved LUMBAGO [M54.5] 09/16/2005 PURE HYPERCHOLESTEROLEM [E78.00] More... LUMBAR DISC DISPLACEMENT [M51.26] OTHER PSORIASIS [L40.8] 02/21/2007 ESOPHAGEAL REFLUX [K21.9] More... Sore throat [J02.9] 09/11/2013 More... Lower urinary tract symptoms (LUTS) [R39.9] 07/19/2014 Essential hypertension [I10] 02/11/2015 BPH (benign prostatic hypertrophy) with urinary*01/15/2016 Impotence of organic origin [N52.9] 01/15/2016 Elevated prostate specific antigen (PSA) [R97.2*02/04/2016 BPH (benign prostatic hyperplasia) [N40.0] Psoriasis [L40.9] More... Encounter Status:Closed by RUT OLMEDO MA on 08/18/19 progress on 2019-01 PROGRESS HNO ID: [id number] Normal 02-03-2019 [facility] Author: René Valdez) Yara aMdison ([id number]) Service: ? Author Type: Physician Type: Progress Notes Filed: 11/20/2019 4:26 PM Note Text: Chief Complaint Patient presents with: F/U 6 Month HPI Wild Caraballo is a 68 year old male who presents here today f or 6 month follow up. ? BPH: Taking flomax and finasteride as prescribed. Getting up 2 times per night to urinate. Has not had straining, weak stream, or hem aturia. Following up yearly with urology. No changes at last OV. Not ed enlarged prostate on kidney/bladder US. No need for additional evalua tion at this time. ? Seen by neurosurgery for chronic lower back pain. Recommende d PT for 6 weeks with subsequent f/u. Has not scheduled PT as his back pain has improved since he stopped working. ? CKD: Repeat CMP showed stable CKD in stage III range. Seen b y Dr. Huynh after referral from urology. Thought that CKD related to pre vious NSAID use. REINIER negative. Advised avoidance of NSAIDs, low sodium d iet. ? Psoriasis without recent flare. Following up with Dr. Stephens on yearly basis. Weight increasing. Has not been following healthy diet. Past medical history, appointments, medications, allergies r milton. Previous Medical History PAST MEDICAL HISTORY Diagnosis Date - BPH (benign prostatic hyperplasia) - Chronic lower back pain Dr. 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 Stephens - Pure hypercholesterolemia with low HDL - Snoring - Tubular adenoma of colon 2014 Follow up colonoscopy due 2020 Previous Surgical History PAST SURGICAL HISTORY Procedure Laterality Date - COLONOSCOP W/ OR W/O [facility] SPEC 08/27/14 Colonoscopy Family History FAMILY HISTORY Problem Relation Age of Onset - other (lung cancer) Father - Hypertension Mother - other (parkinsons) Mother Patient Allergies ALLERGIES Allergen Reactions - Benadryl [Diphenhyd* hyper feeling - Lipitor [Atorvastat* - Pravastatin Myalgia - Zocor [Simvastatin] Current Medications Current Outpatient Medications on File Prior to Visit: rosuvastatin (CRESTOR) 5 mg tablet Take 1 tablet by mouth da jefferson at bedtime. finasteride (PROSCAR) 5 mg tablet Take 1 tablet by mouth onc e daily. tamsulosin ER (FLOMAX) 0.4 mg cap Take 1 capsule by mouth tw ice daily at 6AM and 9PM. sildenafil (VIAGRA) 50 mg tablet Take 1 tablet by mouth as n eeded. one hour prior to intercourse Vacuum Erection Device System (RAPPORT VACUUM THERAPY) kit T o use as directed.Dx:N52.9 No current facility-administered medications on file prior t o visit. 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 Social Needs Financial resource strain: Not on file Food insecurity: Worry: Not on file Inability: Not on file Transportation needs: Medical: Not on file Non-medical: Not on file Tobacco Use Smoking status: Never Smoker Smokeless tobacco: Never Used Substance and Sexual Activity Alcohol use: No Drug use: No Sexual activity: Yes Partners: Female Lifestyle Physical activity: Days per week: Not on file Minutes per session: Not on file Stress: Not on file Relationships Social connections: Talks on phone: Not on file Gets together: Not on file Attends jew service: Not on file Active member of club or organization: Not on file Attends meetings of clubs or organizations: Not on file Relationship status: Not on file Intimate partner violence: Fear of current or ex partner: Not on file Emotionally abused: Not on file Physically abused: Not on file Forced sexual activity: Not on file Other Topics Concerns: Not on file Social History Narrative Not on file Review of Symptoms REVIEW OF SYSTEMS GENERAL: No weight loss, malaise or fevers RESPIRATORY: Negative for cough, hemoptysis, wheezing, COPD, dyspnea or shortness of breath CARDIOVASCULAR: Negative for chest pain, leg swelling, hyper tension, CHF or palpitations GI: No nausea, vomiting, or diarrhea SKIN: Negative for lesions, rash, and itching EXAM: BP 138/86 Pulse 66 Resp 14 Wt 88.5 kg (195 lb) BMI 3 1.47 kg/m? General Appearance: Well appearing, alert, in no acute distr ess, well-hydrated, well nourished.. Skin: Skin color, texture, turgor normal, no suspicious rash es or lesions. Lungs: lungs clear to auscultation. No wheezing, rhonchi, ra les. Heart: RRR without murmur, gallop, or rubs. No ectopy. Abdomen: Normal abdominal exam, Abdomen soft, non-tender. Toño wel sounds normal. No masses, organomegaly. Extremities: No deformities, edema, skin discoloration, club kyree or cyanosis. Good capillary refill. . Health Maintenance List INFLUENZA(1) due on 02/04/2020 BP CONTROLLED (<130/80) due on 02/23/2019 HEMOGLOBIN/HEMATOCRIT due on 03/28/2019 ANNUAL PCP TEAM CHRONIC DISEASE VISIT due on 08/03/2019 COLORECTAL CANCER SCREENING,SEE MODIFIER due on 08/28/2019 SERUM CREATININE due on 09/03/2019 DTAP,TDAP,TD(2 - Td) due on 03/24/2021 DIABETES SCREEN due on 09/02/2021 PROSTATE CANCER SCREENING DISCUSSION due on 09/03/2023 LIPID SCREEN due on 02/02/2024 HEPATITIS C SCREENING Completed ADULT PREVNAR-13 Completed PNEUMOVAX AGE 65 AND OVER WITH 5YR LOOKBACK Completed Data reviewed Component Latest Ref Rng AND Units 09/02/2018 02/01/2019 Protein, Total 6.3 - 8.0 g/dL 7.6 Albumin 3.9 - 4.9 g/dL 4.7 Calcium 8.5 - 10.2 mg/dL 10.1 Bilirubin, Total 0.2 - 1.3 mg/dL 0.5 Alkaline Phosphatase 38 - 113 U/L 102 AST 14 - 40 U/L 27 Glucose 74 - 99 mg/dL 90 BUN 9 - 24 mg/dL 23 Creatinine 0.73 - 1.22 mg/dL 1.47 (H) Sodium 136 - 144 mmol/L 141 Potassium 3.7 - 5.1 mmol/L 4.9 Chloride 97 - 105 mmol/L 103 CO2 22 - 30 mmol/L 24 Anion Gap 9 - 18 mmol/L 14 ALT 10 - 54 U/L 21 eGFR- 58 eGFR-All Other Races . 48 Cholesterol, Total <200 mg/dL 169 Triglyceride <150 mg/dL 128 HDL Cholesterol >39 mg/dL 50 LDL Cholesterol <100 mg/dL 93 Non HDL Cholesterol <130 mg/dL 119 Fasting Time hrs 12 VLDL Cholesterol <30 mg/dL 26 TC:HDL Ratio <5.10 3.38 LDL:HDL Ratio <2.54 1.86 PSA 0.00 - 2.59 ng/mL 1.68 ASSESSMENT/PLAN: 1. CKD (chronic kidney disease) stage 3, GFR 30-59 ml/min (H CC) - ICD9: 585.3, ICD10: N18.3 (primary diagnosis) Recommendations per nephrology. Recheck CMP in 3-6 months. 2. Benign prostatic hyperplasia with lower urinary tract sym ptoms, symptom details unspecified - ICD9: 600.01, ICD10: N40.1 Controlled on flomax and Proscar. Yearly f/u with urology. 3. Essential hypertension - ICD9: 401.9, ICD10: I10 - good control - Continue current medication(s) - Encouraged dietary sodium restriction/DASH diet - Recommended regular aerobic exercise. - Reviewed risks of HTN and principles of treatment - Goal of BP <140/90 4. Pure hypercholesterolemia - ICD9: 272.0, ICD10: E78.00 - good control - Continue current medication. - Encouraged following a low fat, low cholesterol diet. - Discussed the benefits of regular aerobic exercise and estuardo ght loss. 5. Psoriasis - ICD9: 696.1, ICD10: L40.9 Normal exam. Recheck in 6 months. 6. Need for vaccination - ICD9: V05.9, ICD10: Z23 - INFLUENZA SEASONAL HIGH DOSE AGE 65+ René Livingston MD cnov on 2019-02-03 CNOV Office Visit (FAMPWS) Normal 02-04-20 [place] [facility] WILD CARABALLO ([id number]) 1950 [facility] Date Time Provider Department ([id number]) 02/03/19 9:40 AM RENÉ LIVINGSTON) FAMPWS During your visit today, we recorded the following informati on about you: Temperature Pulse Respiration Blood pressure 98 degrees 66/minute 14/minute 138/86 Weight 88.5 kg René Livingston MD 11/20/2019 4:26 PM Addendum Chief Complaint Patient presents with: F/U 6 Month HPI Wild Caraballo is a 68 year old male who presents here today for 6 month follow up. ? BPH: Taking flomax and finasteride as pr escribed. Getting up 2 times per night to urinate. Has not had straining, weak stream, or hematuria . Following up yearly with urology. No changes at last OV. Noted enlarged p rostate on kidney/bladder US. No need for additional evaluation at this time. ? Seen by neurosurgery for chronic lower back pain. Colby mmended PT for 6 weeks with subsequent f/u. Has not scheduled PT as his back pain has improved since he stopped working. ? CKD: Repeat CMP showed stable CKD in stage III range. Seen by Dr. Huynh after referral from urology. Thought that CKD related to previous NSAID use. REINIER negative. Advised avoidance of NSAIDs, low sodium diet. ? Psoriasis without recent flare. Following up with Dr. Stephens on yearly basis. Weight increasing. Has not been following healthy diet. Past medical history, appointments, medications, allergies krish rose. Previous Medical History PAST MEDICAL HISTORY Diagnosis Date - BPH (benign prostatic hyperplasia) - Chronic lower back pain Dr. 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 Stephens - Pure hypercholesterolemia with low HDL - Snoring - Tubular adenoma of colon 2014 Follow up colonoscopy due 2020 Previous Surgical History PAST SURGICAL HISTORY Procedure Laterality Date - COLONOSCOP W/ OR W/O [facility] SPEC 08/27/14 Colonoscopy Family History FAMILY HISTORY Problem Relation Age of Onset - other (lung cancer) Father - Hypertension Mother - other (parkinsons) Mother Patient Allergies ALLERGIES Allergen Reactions - Benadryl [Diphenhyd* hyper feeling - Lipitor [Atorvastat* - Pravastatin Myalgia - Zocor [Simvastatin] Current Medications Current Outpatient Medications on File Prior to Visit: rosuvastatin (CRESTOR) 5 mg tablet Take 1 tablet by mouth daily at bedtime. finasteride (PROSCAR) 5 mg tablet Take 1 tablet by mouth onc e daily. tamsulosin ER (FLOMAX) 0.4 mg cap Take 1 capsule by mo uth twice daily at 6AM and 9PM. sildenafil (VIAGRA) 50 mg tablet Take 1 tablet by mouth as needed. one hour prior to intercourse Vacuum Erection Device System (RAPPORT VACUUM THERAPY) kit T o use as directed.Dx:N52.9 No current facility-administered medications on file prior t o visit. 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 Social Needs Financial resource strain: Not on file Food insecurity: Worry: Not on file Inability: Not on file Transportation needs: Medical: Not on file Non-medical: Not on file Tobacco Use Smoking status: Never Smoker Smokeless tobacco: Never Used Substance and Sexual Activity Alcohol use: No Drug use: No Sexual activity: Yes Partners: Female Lifestyle Physical activity: Days per week: Not on file Minutes per session: Not on file Stress: Not on file Relationships Social connections: Talks on phone: Not on file Gets together: Not on file Attends jew service: Not on file Active member of club or organization: Not on file Attends meetings of clubs or organizations: Not on file Relationship status: Not on file Intimate partner violence: Fear of current or ex partner: Not on file Emotionally abused: Not on file Physically abused: Not on file Forced sexual activity: Not on file Other Topics Concerns: Not on file Social History Narrative Not on file Review of Symptoms REVIEW OF SYSTEMS GENERAL: No weight loss, malaise or fevers RESPIRATORY: Negative for cough, hemoptysis, wheezing, COPD, dyspnea or shortness of breath CARDIOVASCULAR: Negative for chest pain, leg swelling, hyp ertension, CHF or palpitations GI: No nausea, vomiting, or diarrhea SKIN: Negative for lesions, rash, and itching EXAM: BP 138/86 Pulse 66 Resp 14 Wt 88.5 kg (195 lb) BMI 3 1.47 kg/m? General Appearance: Well kvng earing, alert, in no acute distress, well-hydrated, well nourished.. Skin: Skin color, texture, turgor normal, no suspicious rash es or lesions. Lungs: lungs clear to auscultation. No wheezing, rhonchi, ra les. Heart: RRR without murmur, gallop, or rubs. No ectopy. Abdomen: Normal abdominal exam, Abdomen soft, non-tender. Bowel sounds normal. No masses, organomegaly. Extremities: No deformities, edema, skin discolo ration, clubbing or cyanosis. Good capillary refill. . Health Maintenance List INFLUENZA(1) due on 02/04/2020 BP CONTROLLED (<130/80) due on 02/23/2019 HEMOGLOBIN/HEMATOCRIT due on 03/28/2019 ANNUAL PCP TEAM CHRONIC DISEASE VISIT due on 08/03/2019 COLORECTAL CANCER SCREENING,SEE MODIFIER due on 08/28/2019 SERUM CREATININE due on 09/03/2019 DTAP,TDAP,TD(2 - Td) due on 03/24/2021 DIABETES SCREEN due on 09/02/2021 PROSTATE CANCER SCREENING DISCUSSION due on 09/03/2023 LIPID SCREEN due on 02/02/2024 HEPATITIS C SCREENING Completed ADULT PREVNAR-13 Completed PNEUMOVAX AGE 65 AND OVER WITH 5YR LOOKBACK Completed Data reviewed Component Latest Ref Rng AND Units 09/02/2018 02/01/2019 Protein, Total 6.3 - 8.0 g/dL 7.6 Albumin 3.9 - 4.9 g/dL 4.7 Calcium 8.5 - 10.2 mg/dL 10.1 Bilirubin, Total 0.2 - 1.3 mg/dL 0.5 Alkaline Phosphatase 38 - 113 U/L 102 AST 14 - 40 U/L 27 Glucose 74 - 99 mg/dL 90 BUN 9 - 24 mg/dL 23 Creatinine 0.73 - 1.22 mg/dL 1.47 (H) Sodium 136 - 144 mmol/L 141 Potassium 3.7 - 5.1 mmol/L 4.9 Chloride 97 - 105 mmol/L 103 CO2 22 - 30 mmol/L 24 Anion Gap 9 - 18 mmol/L 14 ALT 10 - 54 U/L 21 eGFR- 58 eGFR-All Other Races . 48 Cholesterol, Total <200 mg/dL 169 Triglyceride <150 mg/dL 128 HDL Cholesterol >39 mg/dL 50 LDL Cholesterol <100 mg/dL 93 Non HDL Cholesterol <130 mg/dL 119 Fasting Time hrs 12 VLDL Cholesterol <30 mg/dL 26 TC:HDL Ratio <5.10 3.38 LDL:HDL Ratio <2.54 1.86 PSA 0.00 - 2.59 ng/mL 1.68 ASSESSMENT/PLAN: 1. CKD (chronic kidney disease) stage 3, GFR 30-59 ml/min ([facility]) - ICD9: 585.3, ICD10: N18.3 (primary diagnosis) Recommendations per nephrology. Recheck CMP in 3-6 months. 2. Benign prostatic hyperplasia with lower urinary tract sym ptoms, symptom details unspecified - ICD9: 600.01, ICD10: N40.1 Controlled on flomax and Proscar. Yearly f/u with urology. 3. Essential hypertension - ICD9: 401.9, ICD10: I10 - good control - Continue current medication(s) - Encouraged dietary sodium restriction/DASH diet - Recommended regular aerobic exercise. - Reviewed risks of HTN and principles of treatment - Goal of BP <140/90 4. Pure hypercholesterolemia - ICD9: 272.0, ICD10: E78.00 - good control - Continue current medication. - Encouraged following a low fat, low cholesterol diet. - Discussed the benefits of regular aerobic exercise and estuardo ght loss. 5. Psoriasis - ICD9: 696.1, ICD10: L40.9 Normal exam. Recheck in 6 months. 6. Need for vaccination - ICD9: V05.9, ICD10: Z23 - INFLUENZA SEASONAL HIGH DOSE AGE 65+ René Livingston MD Referring Provider: SELF [200] Allergies As of Date: 02/03/2019 Noted Allergy Reaction BENADRYL (DIPHENHYDRAMINE HCL) 06/01/2006 Comments: hyper feeling LIPITOR (ATORVASTATIN CALCIUM) 11/22/2004 PRAVASTATIN 11/15/2017 17 - Myalgia ZOCOR (SIMVASTATIN) 11/22/2004 Date Reviewed: 02/03/2019 Reviewed by: Kristian Palacio MA - Fully Assessed Reason for Visit: F/U 6 Month [444] Imm/Inj [58] Cmt: Flu Vaccine Reason For Visit History Recorded Primary Visit Diagnosis:CKD (chronic kid catalino disease) stage 3, GFR 30-59 ml/min ([facility]) [N18.3] Other Visit Diagnoses:Benign prostatic hyperplasia with lo wer urinary tract symptoms, symptom details unspecified [N40.1] Essential hypertension [I10] Pure hypercholesterolemia [E78.00] Psoriasis [L40.9] Need for vaccination [Z23] Order(s):INFLUENZA SEASONAL HIGH DOSE AGE 65+ [[id number]] Order #: [id number] Prescriptions as of 02/03/2019 Sig: X ROSUVASTATIN 5 MG TABLET Take 1 tablet by mouth daily * X FINASTERIDE 5 MG TABLET Take 1 tablet by mouth once d* X TAMSULOSIN 0.4 MG CAPSULE Take 1 capsule by mouth twice* X SILDENAFIL 50 MG TABLET Take 1 tablet by mouth as nee* VACUUM ERECTION DEVICE SYSTEM* To use as directed. Dx:N52.9 Problem List As Of Date 02/03/2019 Noted Resolved LUMBAGO [M54.5] 09/16/2005 PURE HYPERCHOLESTEROLEM [E78.00] More... LUMBAR DISC DISPLACEMENT [M51.26] OTHER PSORIASIS [L40.8] 02/21/2007 ESOPHAGEAL REFLUX [K21.9] More... Sore throat [J02.9] 09/11/2013 More... Lower urinary tract symptoms (LUTS) [R39.9] 07/19/2014 Essential hypertension [I10] 02/11/2015 BPH (benign prostatic hypertrophy) with urinary*01/15/2016 Impotence of organic origin [N52.9] 01/15/2016 Elevated prostate specific antigen (PSA) [R97.2*02/04/2016 BPH (benign prostatic hyperplasia) [N40.0] Psoriasis [L40.9] More... Disposition: Return in about 6 months (around 08/04/2019). Follow-up and Disposition History Recorded Encounter Status:Closed by RENÉ LIVINGSTON MD on 9 lipid panel, basic on 2019-02-01 Cholesterol [Mass/Vol] 169 <200 mg/dL Normal 019 [facility] ([id number]) Comment: Result Comment: <200 mg/dL, Desirable 200-239 mg/dL, Borderline hi gh >239 mg/dL, High Performed By: #### LIPB #### [facility] [address], [place] [address] Cholesterol in HDL 50 >39 mg/dL Normal 02-01-2019 [facility] [Mass/Vol] ([id number]) Comment: Result Comment: 40-59 mg/dL, Acceptable >59 mg/dL, High: Negative ri sk factor for coronary heart disease <40 mg/dL, Low: Positive ris k factor for coronary heart disease Performed By: #### LIPB #### [facility] [address], [place] [address] Cholesterol in LDL 93 <100 mg/dL Normal 02-01-2019 [facility] [Mass/Vol] [place] ([id number]) Comment: Result Comment: <100 mg/dL, Optimal 100-129 mg/dL, Near optimal/ above optimal 130-159 mg/dL, Borderline hi gh 160-189 mg/dL, High >189 mg/dL, Very high Secondary prevention optimal LDL Cholesterol levels are recommended to be < 70 mg/dL Performed By: #### LIPB #### [facility] [address], [place] [address] Fasting Time 12 hrs Normal 02-01-2019 [facility] ([id number]) Comment: Performed By: #### LIPB #### [facility] [address], [place] [address] LDL:HDL Ratio 1.86 <2.54 Normal 02-01-2019 [facility] ([id number]) Comment: Result Comment: Reference: 1. National Cholesterol Educ ation Program ATP III Guideline At-A-Glance Quick Desk Reference: National Heart, Lung, and Blood Delight. National Institutes of Health. 2001: NIH Publication No. 01-3305. 2. An International Atherosc lerosis Society position paper: global recommendations for the management of dyslipidemia: executive summary, Atherosclerosis. 2014: 232(2):410-413. Performed By: #### LIPB #### [place] [address] Non HDL Cholesterol 119 <130 mg/dL Normal 02-01-2019 [facility] ([id number]) Comment: Result Comment: <130 mg/dL, Optimal 130-159 mg/dL, Near optimal/ above optimal 160-189 mg/dL, Borderline hi gh 190-219 mg/dL, High >219 mg/dL, Very high Secondary prevention optimal non HDL Cholesterol levels are recommended to be < 100 mg/dL Performed By: #### LIPB #### [place] [address] TC:HDL Ratio 3.38 <5.10 Normal 02-01-2019 [facility] ([id number]) Comment: Performed By: #### LIPB #### [place] [address] Triglyceride [Mass/Vol] 128 <150 mg/dL Normal 2018 [facility] ([id number]) Comment: Result Comment: <150 mg/dL, Normal 150-199 mg/dL, Borderline hi gh 200-499 mg/dL, High >499 mg/dL, Very high Performed By: #### LIPB #### [place] [address] VLDL Cholesterol 26 <30 mg/dL Normal 02-01-2019 [facility] ([id number]) Comment: Performed By: #### LIPB #### [place] [address] cnptoutreach on 201 12-06-21 CNPTOUTREACH Patient Outreach (FAMPST) Normal 1 [place] Arabella WILD CARABALLO ([id number]) 1950 M [facility] Time Provider Department ([id number]) 01/17/19 RENÉ LIVINGSTON) [facility] During your visit today, we recorded the following informati on about you: Allergies As of Date: 01/17/2019 Noted Allergy Reaction BENADRYL (DIPHENHYDRAMINE HCL) 06/01/2006 Comments: hyper feeling LIPITOR (ATORVASTATIN CALCIUM) 11/22/2004 PRAVASTATIN 11/15/2017 17 - Myalgia ZOCOR (SIMVASTATIN) 11/22/2004 Date Reviewed: 09/08/2018 Reviewed by: Angie Luna Ma - Fully Assessed Visit Diagnosis:Pure hypercholesterolemia [E78.00] Order(s):LIPID PANEL BASIC [SQLIPB] Order #: [id number] FUTU RE Prescriptions as of 01/17/2019 Sig: ROSUVASTATIN 5 MG TABLET Take 1 tablet by mouth daily * FINASTERIDE 5 MG TABLET Take 1 tablet by mouth once d* TAMSULOSIN 0.4 MG CAPSULE Take 1 capsule by mouth twice* SILDENAFIL 50 MG TABLET Take 1 tablet by mouth as nee* VACUUM ERECTION DEVICE SYSTEM* To use as directed. Dx:N52.9 Problem List As Of Date 01/17/2019 Noted Resolved LUMBAGO [M54.5] INVALID FOR* PURE HYPERCHOLESTEROLEM [E78.00] More... LUMBAR DISC DISPLACEMENT [M51.26] OTHER PSORIASIS [L40.8] INVALID FOR* ESOPHAGEAL REFLUX [K21.9] More... Sore throat [J02.9] INVALID FOR* More... Lower urinary tract symptoms (LUTS) [R39.9] INVALID FOR* Essential hypertension [I10] INVALID FOR* BPH (benign prostatic hypertrophy) with urinary*INVALID FOR* Impotence of organic origin [N52.9] INVALID FOR* Elevated prostate specific antigen (PSA) [R97.2*INVALID FOR* BPH (benign prostatic hyperplasia) [N40.0] Encounter Status:Closed by EPIC, PRODUSER on 02/01/19 Vital Signs Vital Sign Description Value / Unit Date Location The following section is limited to 5 en tries per type and includes entries from the following time range: 20191120 - [id number] 4. Body weight 84.37 kg 11-20-2019 [facility] ([id number]) BP Diastolic 84 mm[Hg] 11-20-2019 [facility] (04546) BP Systolic 136 mm[Hg] 11-20-2019 [facility] ([id number]) Pulse (Heart Rate) 72 /min 11-20-2019 [place] [facility] (13212) Pulse Oximetry 96 % 11-20-2019 [facility] (33031) Respiratory Rate 12 /min 11-20-2019 [place] [facility] (78362) Encounters Date Type Reason Provider Location 12-11-2019 - Patient encounter [facility] Provider [facility] 12-11-2019 procedure 11-20-2019 - Patient encounter Essential [facility] Valdez[facility]-20-2019 procedure hypertension Yara Monk Comment: Essential hypertension (Prim edita Dx); Benign prostatic hyperplasia with lower urinary tract symptoms, symptom details unspecified; Pure hypercholesterolemia; CKD (chronic kidney disease) stage 3, GFR 30-59 ml/min ([facility]); Psoriasis 12-11-2019 Results Only [facility] Provider [facility] Department 12-12-2019 - Telephone encounter Redd Chavez oenterology 12-12-2019 Comment: Results 12-05-2019 - Telephone encounter René Valdez) [facility] bul[facility] Surgery 12-05-2019 Yara Comment: Prescription Refills Procedures Procedure Name Date Provider Location Colonoscopy flx dx w/collj 12-11-2019 [facility] Provider [facility] ([id number]) spec when pfrmd Colonoscopy 12-11-2019 [facility] ([id number]) Colonoscopy 08-27-2014 - [facility] ([id number]) 08-27-2014 Plan of Treatment Plan Description Date Location COLONOSCOPY COLONOSCOPY 12-10-2024 [facility] ([id number]) LIPID SCREEN LIPID SCREEN 09-12-2024 - [facility] 09-12-2024 ([id number]) PROSTATE CANCER PROSTATE CANCER 09-12-2024 - [facility] SCREENING DISCUSSION SCREENING DISCUSSION 09-12-2024 ([id number] ) ADVANCE DIRECTIVE ADVANCE DIRECTIVE 07-14-2023 - [facility] inic DISCUSSION DISCUSSION 07-14-2023 ([id number]) DIABETES SCREEN DIABETES SCREEN 09-12-2022 - [facility] 09-12-2022 ([id number]) DTAP,TDAP,TD (2 - Td) DTAP,TDAP,TD (2 - Td) 03-24-2021 - [facility] 03-24-2021 ([id number]) ANNUAL PCP TEAM CHRONIC ANNUAL PCP TEAM CHRONIC 11-19-2020 - [facility] DISEASE VISIT DISEASE VISIT 11-19-2020 ([id number]) HEMOGLOBIN/HEMATOCRIT HEMOGLOBIN/HEMATOCRIT 09-12-2020 - [facility] 09-12-2020 ([id number]) SERUM CREATININE SERUM CREATININE 09-12-2020 - [facility] ic 09-12-2020 ([id number]) COMP METABOLIC PANEL COMP METABOLIC PANEL Lab 05-22-2020 - [facility] Routine CKD (chronic 11-19-2020 ([id number]) kidney disease) stage 3, GFR 30-59 ml/min (HCC) Expected: 05/22/2020, Expires: 11/19/2020 Comment: Expected: 05/22/2020, s: 11/19/2020 INFLUENZA (#1) INFLUENZA (#1) 2019 - [facility] 11-28-2019 ([id number]) COLONOSCOPY COLONOSCOPY 08-28-2019 - [facility] 08-28-2019 ([id number]) BP CONTROLLED BP CONTROLLED 02-23-2019 - [facility] (<130/80) (<130/80) 02-23-2019 ([id number]) SHINGRIX VACCINE (1 of SHINGRIX VACCINE (1 of 2002 - [facility] 2) 2) 2002 (84306) no information [facility] ([id number]) Immunizations Vaccine Notes Status Date Location Influenza Seasonal influenza, high dose (completed) 02-03-2019 - [facility] - High Dose - Age seasonal, 02-03-2019 ([id number]) 65+ preservative-free Pneumococcal-13 Vac pneumococcal conjugate (completed) 02-14-2019 - [facility] Conjugate vaccine, 13 valent 02-14-2019 ([id number]) Tdap (Age 7+) tetanus toxoid, (completed) 03-24-2011 [facility]inic reduced diphtheria 03-24-2011 ([id number]) toxoid, and acellular pertussis vaccine, adsorbed Payers Payer Name Policy Number Location MMO MEDICARE [id number] [facility] ([id number] 195) The following information is from the original human [employer] contentNo Payer Records Found Social History Type Social History Date Location Description Tobacco smoking status Never smoker 11-20-2019 - [facility] NHIS 12-11-2019 ([id number]) Tobacco use and Never used 11-20-2019 - [facility] exposure 12-11-2019 (01015) Alcohol intake Current non-drinker of 11-20-2019 - [facility] alcohol (finding) 12-11-2019 (05935) Sex Assigned At Not on file [facility] (54152) Exposure to SARS-CoV-2 Not sure [facility] (event) (75020) The following information is from the original [employer] Social History Records Found History of Present Illness René Livingston) - 11/20/2019 4:25 PM EDT Chief Complaint Patient presents with: 6 Month Exam HPI Wild Caraballo is a 69 year old male who presents here today for 9 month follow up. Has been in good health without hospitalizations or ER visits. BPH: Taking flomax and finasteride as prescribed. ?Getting up 2 times per night to urinate. Has not had straining, weak stream, or hematuria. Following up yearly with urology. No changes at last OV. Noted enlarged prostate on kidney/bladder US. No need for additional evaluation at this time. CKD: Repeat CMP showed stable CKD in stage III range. Seen by Dr. Huynh in January after referral forneurology. Thought that CKD related to previous NSAID use. REINIER negative. Advised avoidance of NSAIDs, low sodium diet which he has been following. ? Psoriasis without recent flare. Following up with Dr. Stephens on yearly basis. Colonoscopy scheduled next month. Walking 4 miles per day and working on healthy diet. Past medical history, appointments, medications, allergies reviewed. Previous Medical History PAST MEDICAL HISTORY Diagnosis Date ? BPH (benign prostatic hyperplasia) ? Chronic lower back pain Dr. Machuca ? CKD (chronic kidney disease) stage 3, GFR 30-59 ml/min ([facility]) Dr. Huynh ? Displacement of lumbar intervertebral disc without myelopathy ? Erectile dysfunction ? Esophageal reflux episode in May 2007; resolved with one month PPI ? Psoriasis Dr. Stephens ? Pure hypercholesterolemia with low HDL ? Snoring ? Tubular adenoma of colon 2014 Follow up colonoscopy due 2020 Previous Surgical History PAST SURGICAL HISTORY Procedure Laterality Date ? COLONOSCOP W/ OR W/O [facility] SPEC 08/27/14 Colonoscopy Family History FAMILY HISTORY Problem Relation Age of Onset ? other (lung cancer) Father ? Hypertension Mother ? other (parkinsons) Mother Patient Allergies ALLERGIES Allergen Reactions ? Benadryl [Diphenhyd* hyper feeling ? Lipitor [Atorvastat* ? Pravastatin Myalgia ? Zocor [Simvastatin] Current Medications Current Outpatient Medications on File Prior to Visit Medication Sig ? tamsulosin ER (FLOMAX) 0.4 mg Take 1 capsule by mouth twice daily at 6AM and 9PM. ? finasteride (PROSCAR) 5 mg tablet Take 1 tablet by mouth once daily. ? rosuvastatin (CRESTOR) 5 mg tablet Take 1 tablet by mouth daily at bedtime. ? meclizine (ANTIVERT) 25 mg tab Take 1 tablet by mouth every 6 hours as needed (dizziness). ? Vacuum Erection Device System ([employer] VACUUM THERAPY) kit To use as directed. Dx:N52.9 No current facility-administered medications on file prior to visit. Social History Social History Tobacco Use ? Smoking status: Never Smoker ? Smokeless tobacco: Never Used Substance Use Topics ? Alcohol use: No ? Drug use: No Review of Symptoms REVIEW OF SYSTEMS GENERAL: No weight loss, malaise or fevers RESPIRATORY: Negative for cough, hemoptysis, wheezing, COPD, dyspnea or shortness of breath CARDIOVASCULAR: Negative for chest pain, leg swelling, hypertension, CHF or palpitations GI: No nausea, vomiting, or diarrhea SKIN: Negative for lesions, rash, and itching EXAM: BP 136/84 Pulse 72 Resp 12 Wt 84.4 kg (186 lb) SpO2 96% BMI 30.02 kg/m? General Appearance: Well appearing, alert, in no acute distress, well-hydrated, well nourished.. Skin: Skin color, texture, turgor normal, no suspicious rashes or lesions. Lungs: Lungs clear to auscultation. No wheezing, rhonchi, rales.. Heart: RRR without murmur, gallop, or rubs. No ectopy. Abdomen: Normal abdominal exam, Abdomen soft, non-tender. Bowel sounds normal. No masses, organomegaly. Extremities: No deformities, edema, skin discoloration, clubbing or cyanosis. Good capillary refill.. Health Maintenance List SHINGRIX VACCINE(1 of 2) due on 2002 COLONOSCOPY due on 08/28/2019 INFLUENZA(1) due on 11/28/2019 ANNUAL PCP TEAM CHRONIC DISEASE VISIT due on 02/04/2020 SERUM CREATININE due on 09/12/2020 HEMOGLOBIN/HEMATOCRIT due on 09/12/2020 BP CONTROLLED (<130/80) due on 09/17/2020 DTAP,TDAP,TD(2 - Td) due on 03/24/2021 DIABETES SCREEN due on 09/12/2022 ADVANCE DIRECTIVE DISCUSSION due on 07/14/2023 LIPID SCREEN due on 09/12/2024 PROSTATE CANCER SCREENING DISCUSSION due on 09/12/2024 HEPATITIS C SCREENING Completed PNEUMOVAX AGE 65 AND OVER WITH 5YR LOOKBACK Completed MENINGOCOCCAL CONJUGATE Completed Data reviewed Component Latest Ref Rng & Units 09/02/2018 02/01/2019 09/13/2019 WBC 3.70 - 11.00 k/uL 6.76 RBC 4.20 - 6.00 m/uL 5.13 Hemoglobin 13.0 - 17.0 g/dL 14.9 Hematocrit 39.0 - 51.0 % 45.8 MCV 80.0 - 100.0 fL 89.3 MCH 26.0 - 34.0 pG 29.0 MCHC 30.5 - 36.0 g/dL 32.5 RDW-CV 11.5 - 15.0 % 13.1 Platelet Count 150 - 400 k/uL 256 MPV 9.0 - 12.7 fL 11.2 Neut% % 63.4 Abs Neut (ANC) 1.45 - 7.50 k/uL 4.26 Lymph% % 24.4 Abs Lymph 1.00 - 4.00 k/uL 1.65 [place]% % 11.5 Abs [place] <0.87 k/uL 0.78 Eosin% % 0.0 Abs Eosin <0.46 k/uL <0.03 Baso% % 0.7 Abs Baso <0.11 k/uL 0.05 Nucleated Reds 0 /100 WBC 0.0 Absolute nRBC <0.01 k/uL <0.01 Diff Type Auto Diff Protein, Total 6.3 - 8.0 g/dL 7.6 7.3 Albumin 3.9 - 4.9 g/dL 4.7 4.5 Calcium 8.5 - 10.2 mg/dL 10.1 9.6 Bilirubin, Total 0.2 - 1.3 mg/dL 0.5 0.6 Alkaline Phosphatase 38 - 113 U/L 102 87 AST 14 - 40 U/L 27 29 Glucose 74 - 99 mg/dL 90 89 BUN 9 - 24 mg/dL 23 26 (H) Creatinine 0.73 - 1.22 mg/dL 1.47 (H) 1.57 (H) Sodium 136 - 144 mmol/L 141 136 Potassium 3.7 - 5.1 mmol/L 4.9 4.5 Chloride 97 - 105 mmol/L 103 101 CO2 22 - 30 mmol/L 24 23 Anion Gap 9 - 18 mmol/L 14 12 ALT 10 - 54 U/L 21 21 eGFR- 58 54 eGFR-All Other Races . 48 44 Cholesterol, Total <200 mg/dL 169 160 Triglyceride <150 mg/dL 128 116 HDL Cholesterol >39 mg/dL 50 48 LDL Cholesterol <100 mg/dL 93 89 Non HDL Cholesterol <130 mg/dL 119 112 Fasting Time hrs 12 10 VLDL Cholesterol <30 mg/dL 26 23 TC:HDL Ratio <5.10 3.38 3.33 LDL:HDL Ratio <2.54 1.86 1.85 PSA 0.00 - 2.59 ng/mL 1.68 1.42 ASSESSMENT/PLAN: 1. Essential hypertension - ICD9: 401.9, ICD10: I10 (primary diagnosis) - good control - Continue current medication(s) - Encouraged dietary sodium restriction/DASH diet - Recommended regular aerobic exercise. - Reviewed risks of HTN and principles of treatment - Goal of BP <140/90 2. Benign prostatic hyperplasia with lower urinary tract symptoms, symptom details unspecified - ICD9: 600.01, ICD10: N40.1 Controlled. Continue current regimen. 3. Pure hypercholesterolemia - ICD9: 272.0, ICD10: E78.00 - good control - Continue current medication. - Encouraged following a low fat, low cholesterol diet. - Discussed the benefits of regular aerobic exercise and weight loss. 4. CKD (chronic kidney disease) stage 3, GFR 30-59 ml/min (HCC) - ICD9: 585.3, ICD10: N18.3 Stable. Avoid NSAIDs, limit sodium to 2,000 mg daily. Recheck in 6 months. - COMP METABOLIC PANEL 5. Psoriasis - ICD9: 696.1, ICD10: L40.9 Asymptomatic. Discussed skin care. F/u in 6 months. René Livingston MD documented in this encounter Assessments Diagnosis Essential hypertension - Primary Unspecified essential hypertension Benign prostatic hyperplasia with lower urinary tract symptoms, symptom details unspecified Pure hypercholesterolemia CKD (chronic kidney disease) stage 3, GF R 30-59 ml/min (HCC) Chronic kidney disease, Stage III (moder ate) Psoriasis Other psoriasis Personal history of colonic polyps Advance Directives No Advanced Directives Records Found Documents on File Type Date Recorded Patient Janitor Head Explanati on Advance Directive(s) 07/13/2018 10:05 AM Documents on File Type Date Recorded Patient Janitor Head Explanati on Advance Directive(s) 07/13/2018 10:05 AM Advance Directive(s) 11/22/2019 10:04 AM Advance Directive(s) 11/30/2019 10:23 AM Documents on File Type Date Recorded Patient Janitor Head Explanati on Advance Directive(s) 07/13/2018 10:05 AM Advance Directive(s) 11/22/2019 10:04 AM Advance Directive(s) 11/30/2019 10:23 AM Advance Directive(s) 12/11/2019 10:36 AM Summary Purpose Family History No Family History Records Found Additional Source Comments FOR RECORDS PERTAINING TO PATIENTS WHO ARE OR HAVE BEEN ENROLLED IN A CHEMICAL DEPENDENCY/SUBSTANCE ABUSE PROGRAM, SOME INFORMATION MAY BE OMITTED. This clinical summary was aggregated from multiple sources. Caution should be exercised in using it in the provision of clinical care. This summary normalizes information from multiple sources, and as a consequence, information in this document may materially changethe coding, format and clinical context of patient data. In addition, data may be omittedin some cases. CLINICAL DECISIONS SHOULD BE BASED ON THE PRIMARY CLINICAL RECORDS. [facility] provides no warranty or guarantee of the accuracy or completeness of information in this document. UNRECOGNIZED CONTENT PROVIDED BELOW FOR UNRECOGNIZED SECTION Source Comments In the event this information is protected by the Federal Confidentiality of Alcohol and Drug Abuse Patient Records regulations: The Federal rules restrict any use of the information to criminally investigate or prosecute any alcohol or drug abuse patient.[facility] the event this information is protected by the Federal Confidentiality of Alcohol and Drug Abuse Patient Records regulations: The Federal rules restrict any use of the information to criminally investigate or prosecute any alcohol or drug abuse patient.[facility] the event this information is protected by the Federal Confidentiality of Alcohol and Drug Abuse Patient Records regulations: The Federal rules restrict any use of the information to criminally investigate or prosecute any alcohol or drug abuse patient.[facility] the event this information is protected by the Federal Confidentiality of Alcohol and Drug Abuse Patient Records regulations: The Federal rules restrict any use of the information to criminally investigate or prosecute any alcohol or drug abuse patient.[facility] UNRECOGNIZED CONTENT PROVIDED BELOW FOR UNRECOGNIZED SECTION Reason for Visit Reason Comments 6 Month Exam Reason Onset Date Comments Prescription Refills 12/05/2019 Reason Onset Date Comments Results 12/12/2019 UNRECOGNIZED CONTENT PROVIDED BELOW FOR UNRECOGNIZED SECTION Miscellaneous Notes Telephone Encounter - Lisa Ellis) - 12/05/2019 11:18 AM EDTOrder for colon prep placed. Thanks, Lisa Ellis, [employer].MAGO Telephone Encounter - Raya FregosoRn), RN - 12/05/2019 10:16 AM EDTPlease order prep for colonoscopy to [facility] in [place]. Thank you, Raya Fregoso, RN documented in this encounterTelephone Encounter - Rio CardenasRn), RN - 12/13/2019 7:54 AM EDTAttempted to call pt; left VM asking pt to call office back regarding results. Repeat colonoscopy in5 years. elephone Encounter - Redd Colon - 12/12/2019 5:32 PM EDTColon polyp was a tubular adenoma documented in this encounter UNRECOGNIZED CONTENT PROVIDED BELOW FOR UNRECOGNIZED SECTION No Status Records Found UNRECOGNIZED CONTENT PROVIDED BELOW FOR UNRECOGNIZED SECTION INFORMATION SOURCE DATE CREATED AUTHOR AUTHOR'S ORGANIZATIO N 12/26/2019 [facility] Anton arnett
== END ==
LOC: POLAB3 11:05 → LAB 11:23
PROVIDERS: PCP Family Medicine; Referring Provider Internal Medicine Nephrology; Visit Provider Internal Medicine Nephrology
DX: N18.3 Chronic kidney disease, stage 3 (moderate) (principal)
CPT/HCPCS: 36415; 80069

== ENCOUNTER → 2020-04-26 10:49 | Outpatient (CLI) | payer OTHER, SELFPAY ==
[2017-01-07 17:49] VITALS: BMI 30.9
[2020-04-26 12:00] LABS: Albumin, Serum 3.9 g/dL (3.2-5.0); BUN 26 mg/dL (7-18); BUN/Creat Ratio 16.6 RATIO (10-20); Calcium,Total 9.1 mg/dL (8.5-10.1); Chloride 105 mmol/L (98-107); Creatinine, Serum 1.57 mg/dL (0.70-1.30); EST Glomerular Filtration Rate 47 mL/min (>60); Est Glom Filt Rate - Afr Amer 57 mL/min (>60); Glucose 87 mg/dL (74-106); Phosphorus 3.3 mg/dL (2.5-4.9); Potassium 4.4 mmol/L (3.5-5.1); Sodium Level 137 mmol/L (136-145)
[2020-04-26 12:01] LABS: Protein, Urine (Random) 10.4 mg/dL (<11.9); Protein:Creat Ratio 307 mg/g CRE (0-200)
== END ==
PROVIDERS: PCP Family Medicine; Visit Provider Internal Medicine Nephrology
DX: N18.30 Chronic kidney disease, stage 3 unspecified (principal)
CPT/HCPCS: 36415; 80069; 82570; 84156

== ENCOUNTER → 2021-03-19 13:12 | Outpatient (CLI) | payer OTHER, SELFPAY ==
[2017-01-07 17:49] VITALS: BMI 30.9
[2021-03-19 16:55] LABS: Albumin, Serum 4.2 g/dL (3.2-5.0); BUN 22 mg/dL (7-18); BUN/Creat Ratio 12.8 RATIO (10-20); Calcium,Total 9.1 mg/dL (8.5-10.1); Chloride 103 mmol/L (98-107); Creatinine, Serum 1.72 mg/dL (0.70-1.30); EST Glomerular Filtration Rate 42 mL/min (>60); Est Glom Filt Rate - Afr Amer 51 mL/min (>60); Glucose 55 mg/dL (74-106); Potassium 3.5 mmol/L (3.5-5.1); Sodium Level 139 mmol/L (136-145)
== END ==
PROVIDERS: PCP Family Medicine; Visit Provider Internal Medicine Nephrology
DX: N18.31 Chronic kidney disease, stage 3a (principal)
CPT/HCPCS: 36415; 80069

== ENCOUNTER → 2021-09-16 | Outpatient (CLI) | payer OTHER, SELFPAY ==
[2021-09-16 11:11] LABS: Bacteria 0 SEEN /hpf (None Seen); Mucous, Urine 0 SEEN /hpf (<or=2+); Red Blood Cells-Urine 0 SEEN /hpf (0-5); Squamous Epithelial Cells - UA 0 SEEN /hpf (0-5); White Blood Cells 0 SEEN /hpf (0-5)
[2021-09-16 12:53] LABS: Color, Urine Yellow (Yellow); Glucose, Dipstick Normal (Normal); Ketone-Dipstick Negative (Negative); Leukocyte Esterase-Dipstick Negative /ul (Negative); Nitrite-Dipstick Negative (Negative); Occult Blood-Urine Negative /ul (Negative); Protein-Dipstick Negative (Negative); Specific Gravity, Urine 1.005 (1.002-1.030); Urine Bilirubin Dipstick Negative (Negative); Urine Clarity Sl. Cloudy (Clear); Urine Urobilinogen Normal (Normal)
[2021-09-16 13:05] LABS: Protein, Urine (Random) 7.4 mg/dL (<11.9); Protein:Creat Ratio 300 mg/g CRE (0-200)
== END | disposition home or self-care (01) ==
LOC: LABSPEC 11:10
PROVIDERS: PCP Family Medicine; Visit Provider Internal Medicine Nephrology
DX: I10 Essential (primary) hypertension (principal)
CPT/HCPCS: 81001; 82570; 84156

== ENCOUNTER 2022-08-14 06:57 | Emergency (ER) | payer MEDICARE, SELFPAY ==
[2022-08-14 06:57] VITALS: BP 139/72; PULSE 118; RESP 20; TEMP 37; O2SAT 96; BMI 31.8
[2022-08-14 07:02] VITALS: O2SAT 95
--- NOTE | 2022-08-14 07:24 | EX.ED.DYSGE1 ---
HPI History of Present Illness Chief Complaint: Allergic Reaction Narrative Narrative: 72-year-old male past medical history of hypertension, benign prostatic hypertrophy, states he was recently started on antibiotic for toe infection. He also started cyclobenzaprine and prednisone for back pain, but did not take any muscle relaxer yesterday. He presents because he and his noticed that he has an itchy rash on his trunk with a lot of welts, and red bumps on his back and arms. He states his throat feels thick, and that he was having difficulty swallowing. He has a large amount of white spit, and states his throat felt dry. He has been able to drink water. He may have had this reaction even yesterday morning, but it was worse today. He denies any fevers or chills, no cough, or other symptoms but he has been itchy over the last day or 2 because he has been scratching. He denies any previous allergies. PFSH PFSH Home Medications finasteride 5 mg tablet 5 mg PO DAILY 01/07/17 [History Last Taken Unknown] pravastatin 40 mg tablet 40 mg PO DAILY 01/07/17 [History Last Taken Unknown] tamsulosin 0.4 mg capsule 0.4 mg PO DAILY 01/07/17 [History Last Taken Unknown] lisinopril 5 mg tablet 2.5 mg PO DAILY 12/26/21 [History Last Taken Unknown] epinephrine 0.3 mg/0.3 mL injection, auto-injector 0.3 mg (0.3 mL) IM X1 PRN anaphylaxis #2 ea 08/14/22 [Rx Last Taken Unknown] Allergy/AdvReac Type Severity Reaction Status Date / Time sulfamethoxazole Allergy Severe throat Verified 08/14/22 11:10 [From Bactrim] swelling, rash trimethoprim [From Bactrim] Allergy Severe throat Verified 08/14/22 11:10 swelling, rash diphenhydramine Allergy Other Verified 08/14/22 07:00 [From Benadryl] Social History Smoking Status: Never smoker ROS ROS ED ROS Narrative Constitutional: No fever, no chills. HEENT: No sore throat. Throat feels thick however, mild difficulty swallowing, dry throat. No neck pain. No loss of vision. No rhinorrhea. Cardiovascular: No chest pain. No palpitations. No pedal edema. Respiratory: No cough, no shortness of breath. Abdominal: No abdominal pain. No nausea. No vomiting. Genitourinary: No dysuria. No hematuria. Musculoskeletal: No myalgias. No arthralgias. Neurologic: No headaches. No dizziness. No lightheadedness. Skin: Positive back/trunk and arms rash. Raised bumps. No change in color. Psychiatric: No depression. No anxiety. EXAM Physical Exam Narrative Exam Narrative: Afebrile. Vital signs noted. HEENT: Normocephalic. Atraumatic. PERRL, EOMI. Neck soft and supple. No point tenderness or step off. Airway is patent, no drooling or trismus, thick, white saliva in back of throat. Cardiovascular: Positive tachycardia. No murmurs, rubs, or gallops appreciated. Respiratory: No tachypnea. Lungs clear to auscultation bilaterally. No wheezing or stridor. Gastrointestinal: Abdomen soft, nontender, with normoactive bowel sounds. No rebound or guarding. Neurological: Awake. Alert. Nonfocal, nonlateralizing. Skin: No rash. Normal color. No pallor. Musculoskeletal: No pedal edema. Full range of motion extremities. Const Vital Signs: 08/14/22 06:57 08/14/22 07:02 08/14/22 08:44 Temperature 98.6 F Temperature Source Temporal Pulse Rate 118 H 107 H Respiratory Rate 20 H 15 Respiratory Effort Normal Non-Labored Respiratory Depth Normal Respiratory Pattern Normal Blood Pressure 139/72 H 125/71 H Blood Pressure Mean 94 89 Pulse Ox 96 96 Oxygen Delivery Method Room Air Room Air Room Air [facility] [place] Narr[place] Medical decision making narrative: In review of his recent medications, I do feel that although he has finished his course of therapy, that Bactrim is most likely the culprit of his allergic reaction/drug reaction. He will be placed on a vehicle monitor technician. IV was started by RN. Although he lists Benadryl as an allergy, he and his state it is more of an intolerance because it makes him feel jittery. I do feel that Benadryl is indicated for this type of reaction so he will start with 25 mg intravenously along with Pepcid 20 mg intravenously has another additional histamine kapil. He will also be administered Solu-Medrol 125 mg intravenously. If he does not show a significant improvement, or his condition worsens, I will consider epinephrine 0.3 mg intramuscularly. Currently he is not hypotensive or hypoxic. Upon repeat examination at approximately 8:30 in the morning, patient is still having thick, frothy saliva and he stated that his throat feels mildly improved. He was administered epinephrine 0.3 mg intramuscularly. Upon repeat examination at approximately 11 AM, his throat is clear and he is able to swallow and he states he feels markedly improved. I do feel that the cause of his anaphylactic type reaction/drug allergy is more than likely from the Bactrim and not prednisone or cyclobenzaprine. He did tolerate the Benadryl at 25 mg intravenously. At this point in time, I wrote him for epinephrine pens to use should his symptoms return. He has been observed over 2 hours since his epinephrine injection. His symptoms have improved. I feel he can be discharged to follow-up with his primary care physician for possible referral to allergy/immunology. He was told to avoid use of Bactrim in the future and I listed this as one of his allergies. Disposition is discharged home in stable condition. Return instructions to the emergency department were reviewed. Discharge Plan Triage Chief Complaint: Allergic Reaction ED Provider: Juan Pablo Gtz Dx/Rx/DC Orders Clinical Impression: Allergic drug rash, Drug allergy, Anaphylactic reaction Instructions: ED ADVERSE DRUG REACTION Allergic, ED Anaphylaxis Prescriptions: New epinephrine 0.3 mg/0.3 mL auto-injector 0.3 mg IM X1 PRN (Reason: anaphylaxis) Qty: 2 0RF No Action lisinopril 5 mg tablet 2.5 mg PO DAILY pravastatin 40 MG tablet 40 mg PO DAILY Label Comments: tamsulosin 0.4 MG capsule 0.4 mg PO DAILY Label Comments: finasteride 5 MG tablet 5 mg PO DAILY Primary Care Provider: Bj Livingston Referrals: Bj Livingston MD [Primary Care Provider] - 3-5 Days Activity Restrictions/Additional Instructions: Avoid use of Bactrim in the future. Follow-up with your primary care provider. You may need referral to an distribution center assistant. If you are unable to swallow or breathe, use epinephrine pen x1 and call EMS Disposition Disposition: Home, Self Care
[2022-08-14] MEDS: DiphenhydrAMINE 50 MG/ML Syringe 25 MG IV (07:39)
[2022-08-14] MEDS: MethylPREDNISolone 125 MG/2 ML Vial IV (07:39)
[2022-08-14] MEDS: Famotidine 200 MG/20 ML MDV 20 MG in 0.9% Normal Saline (Pres. free 8 ML 300 MG IV (07:45)
[2022-08-14] MEDS: Epi Pen (EQUIV) 0.3 MG Syringe IM (08:39)
[2022-08-14 08:44] VITALS: BP 125/71; PULSE 107; RESP 15; O2SAT 96
[2022-08-14 11:24] VITALS: BP 115/84; PULSE 95; RESP 16; O2SAT 94
== END 2022-08-14 11:25 | disposition home or self-care (01) ==
PROVIDERS: Emergency Provider Emergency Medicine; PCP Family Medicine; Visit Provider Emergency Medicine
DX: L27.0 Generalized skin eruption due to drugs and medicaments taken internally (principal); I10 Essential (primary) hypertension; T78.2XXA Anaphylactic shock, unspecified, initial encounter; T36.8X5A Adverse effect of other systemic antibiotics, initial encounter; N40.0 Benign prostatic hyperplasia without lower urinary tract symptoms; Z79.899 Other long term (current) drug therapy
CPT/HCPCS: 96372; 96374; 96375; 99285; A4216; J3490